=== PATIENT | male | born 1955 | race Caucasian/White ===

== ENCOUNTER → 2017-09-26 | Outpatient (CLI) | payer BC ==
[2017-09-26 08:00] LABS: Appearance,Urine Clear (Clear); Bilirubin,Urine Negative (Negative); Blood,Urine Negative (Negative); Color,Urine Yellow; Glucose,Urine (UA) 4+ (Negative); Ketones,Urine Negative (Negative); Leukocyte Esterase,Urine Negative (Negative); Nitrite,Urine Negative (Negative); PH, Urine 5.5 (5.0-8.0); Protein,Urine Trace (Negative); Specific Gravity,Urine 1.018 (1.001-1.035); Urobilinogen,Urine <2.0 mg/dL (<2.0)
[2017-09-26 08:03] LABS: Basophils # (A) 0.1 k/uL (0-0.2); Basophils % (A) 1 %; Eosinophils # (A) 0.3 k/uL (0-0.7); Eosinophils % (A) 5 %; HCT 43.7 % (39.0-53.0); HGB 14.7 gm/dL (13.0-17.5); Lymphocytes # (A) 2.1 k/uL (1.0-4.8); Lymphocytes % (A) 37 %; MCH 30.2 pg (25.0-35.0); MCHC 33.6 g/dL (31.0-37.0); MCV 89.7 fL (80.0-100.0); Mean Platelet Volume 7.5; Monocytes # (A) 0.5 k/uL (0-1.0); Monocytes % (A) 8 %; Neutrophils # (A) 2.6 k/uL (1.3-7.7); Neutrophils % (A) 46 %; Platelet Count 173 k/uL (150-450); RBC 4.87 m/uL (4.30-5.90); RDW 12.9 % (11.5-15.5); WBC 5.6 k/uL (3.8-10.6)
[2017-09-26 11:55] LABS: ALT 35 U/L (21-72); AST 22 U/L (17-59); Albumin 4.2 g/dL (3.5-5.0); Alkaline Phosphatase 74 U/L (38-126); Anion Gap 11 mmol/L; Blood Urea Nitrogen 16 mg/dL (9-20); Calcium 9.6 mg/dL (8.4-10.2); Carbon Dioxide 26 mmol/L (22-30); Chloride 104 mmol/L (98-107); Cholesterol 126 mg/dL (<200); Glucose 195 mg/dL (74-99); HDL Cholesterol 33 mg/dL (40-60); LDL Cholesterol,Calculated 70 mg/dL (0-99); Potassium 4.7 mmol/L (3.5-5.1); Sodium 141 mmol/L (137-145); Total Bilirubin 0.5 mg/dL (0.2-1.3); Triglycerides 117 mg/dL (<150)
[2017-09-26 12:10] LABS: T4, Free (Free Thyroxine) 0.96 ng/dL (0.78-2.19)
[2017-09-26 12:24] LABS: PSA Annual Screen 1.06 ng/mL (0.00-4.00)
== END | disposition home or self-care (01) ==
LOC: LABWHC1 07:29
PROVIDERS: ATTEND Family Medicine
DX: I10 Essential (primary) hypertension (principal); E11.9 Type 2 diabetes mellitus without complications; Z12.5 Encounter for screening for malignant neoplasm of prostate
CPT/HCPCS: 84439; 80061; 80053; 84443; 85025; 81003; 83036; 36415; G0103

== ENCOUNTER → 2019-12-23 | Outpatient (CLI) | payer MEDICARE ==
[2019-12-23 12:36] LABS: ALT 25 U/L (4-49); AST 25 U/L (17-59); African American GFR (CKD) >90 (>60 ml/min/1.73 sqM); Albumin 4.7 g/dL (3.5-5.0); Alkaline Phosphatase 104 U/L (38-126); Anion Gap 14 mmol/L; Blood Urea Nitrogen 11 mg/dL (9-20); Calcium 9.8 mg/dL (8.4-10.2); Carbon Dioxide 21 mmol/L (22-30); Chloride 105 mmol/L (98-107); Glucose 127 mg/dL (74-99); INR 0.9 (<1.2); Non-African American GFR(CKD) >90 (>60 ml/min/1.73 sqM); Partial Thromboplastin Time 24.6 sec (22.0-30.0); Potassium 4.4 mmol/L (3.5-5.1); Prothrombin Time 9.8 sec (9.0-12.0); Sodium 140 mmol/L (137-145); Total Bilirubin 0.7 mg/dL (0.2-1.3); Total Protein 7.9 g/dL (6.3-8.2)
[2019-12-23 12:46] LABS: HCT 45.7 % (39.0-53.0); HGB 15.6 gm/dL (13.0-17.5); MCH 31.1 pg (25.0-35.0); MCHC 34.2 g/dL (31.0-37.0); MCV 90.9 fL (80.0-100.0); Mean Platelet Volume 7.5; Platelet Count 203 k/uL (150-450); RBC 5.03 m/uL (4.30-5.90); RDW 12.7 % (11.5-15.5); WBC 8.2 k/uL (3.8-10.6)
--- NOTE | 2019-12-23 12:51 | XR ---
EXAMINATION TYPE: XR chest 2V DATE OF EXAM: 12/23/2019 COMPARISON: None INDICATION: Presurgical evaluation TECHNIQUE: Frontal and lateral views of the chest are obtained. FINDINGS: The heart size is normal. The pulmonary vasculature is normal. There is a small nodule within the mid left lung measuring 0.9 cm. Follow-up is recommended. IMPRESSION: 1. Small nodule left midlung. Follow-up is recommended. 2. An acute pulmonary process is not otherwise identified.
[2019-12-23 14:29] LABS: Appearance,Urine Clear (Clear); Bilirubin,Urine Negative (Negative); Blood,Urine Negative (Negative); Color,Urine Colorless; Glucose,Urine (UA) Negative (Negative); Ketones,Urine Negative (Negative); Leukocyte Esterase,Urine Negative (Negative); Nitrite,Urine Negative (Negative); Protein,Urine Negative (Negative); Specific Gravity,Urine 1.003 (1.001-1.035); Urobilinogen,Urine <2.0 mg/dL (<2.0)
== END | disposition home or self-care (01) ==
LOC: LABPAT 11:43
PROVIDERS: ATTEND Orthopaedic Surgery Orthopaedic Surgery of the Spine
DX: Z01.818 Encounter for other preprocedural examination (principal); R91.8 Other nonspecific abnormal finding of lung field; U07.1 COVID-19
CPT/HCPCS: 71046; 80053; 81003; 85027; 85610; 85730; 87635; 93005

== ENCOUNTER 2019-12-28 10:02 | Observation (INO) | payer BC, MEDICARE ==
[~2019-12-28 10:02] MED LIST: HYDROmorphone 0.5 MG/0.5 ML SYRINGE IVP PRN; LIDOCAINE 1% (10MG/ML) FOR IV START INTRADERMA PRN; ONDANSETRON 4 MG/2 ML VIAL IVP ONE; SODIUM CHLORIDE 0.9% IRRIGATIO 1,000 ML IRRIGATION ONE; fentaNYL (PF) 50 MCG/ML 2 ML AMP IV PRN
[2019-12-28 10:30] LABS: Glucose,Whole Blood 185 mg/dL (75-99)
[2019-12-28] MEDS ORDERED: LACTATED RINGERS 1,000 ML IV ONE ×2 (10:35→14:05)
[2019-12-28] MEDS ORDERED: MIDAZOLAM 2 MG/2 ML VIAL IVP ONE (10:43)
[2019-12-28] MEDS ORDERED: CALCIUM CHLORIDE 100 MG/ML 10 ML SYRINGE ONE (11:26)
[2019-12-28] MEDS ORDERED: ROCURONIUM BROMIDE 10 MG/ML 5 ML VIAL IV ONE (11:26)
[2019-12-28] MEDS ORDERED: GLYCOPYRROLATE 0.2 MG/ML 2 ML VIAL ONE (11:26)
[2019-12-28] MEDS ORDERED: HYDROmorphone (PF) 1 MG/ML ONE (11:26)
[2019-12-28] MEDS ORDERED: fentaNYL (PF) 50 MCG/ML 2 ML AMP ONE (11:26)
[2019-12-28] MEDS ORDERED: ONDANSETRON 4 MG/2 ML VIAL ONE (11:26)
[2019-12-28] MEDS ORDERED: PROPOFOL 10 MG/ML 20 ML VIAL IV ONE (11:26)
[2019-12-28] MEDS ORDERED: LIDOCAINE 1% INJ 10MG/ML (20 ML MDV) ONE (11:26)
[2019-12-28] MEDS ORDERED: DEXAMETHASONE SOD PHOS (MDV) 100 MG/10 ML VIAL ONE (11:26)
[2019-12-28] MEDS ORDERED: SUCCINYLCHOLINE CHLORIDE 100 MG/5 ML SYR IV ONE (11:26)
[2019-12-28] MEDS ORDERED: ePHEDrine SULFATE/0.9% NACL/PF 50 MG/5 ML SYRINGE IV ONE (11:26)
[2019-12-28] MEDS ORDERED: MIDAZOLAM 2 MG/2 ML VIAL ONE (11:26)
[2019-12-28] MEDS ORDERED: NEOSTIGMINE 1 MG/ML 10 ML VIAL ONE (11:26)
[2019-12-28] MEDS ORDERED: LIDOCAINE 2%-EPI 1:100,000 20 ML VIAL SQ ONE (12:03)
[2019-12-28] MEDS ORDERED: BUPIVACAINE (PF) 0.5% 30 ML VIAL SQ ONE (12:03)
[2019-12-28] MEDS ORDERED: THROMBIN (BOVINE) 5,000 UNIT VIAL TOPICAL ONE (12:12)
[2019-12-28] MEDS ORDERED: GELATIN SPONGE,ABSORB (LARGE) 1 EACH SPONGE TOPICAL ONE (12:12)
[2019-12-28] MEDS ORDERED: SODIUM CHLORIDE 0.9% 1,000 ML IV ONE (12:28)
--- NOTE | 2019-12-28 13:43 | FL ---
EXAMINATION TYPE: FL guidance operating room DATE OF EXAM: 12/28/2019 HISTORY: Fluoroscopy time 7 seconds of fluoroscopy provided. IMPRESSION: 1. Fluoroscopy time.
--- NOTE | 2019-12-28 13:43 | XR ---
EXAMINATION TYPE: XR cervical spine 1V DATE OF EXAM: 12/28/2019 COMPARISON: NONE HISTORY: Needle placement TECHNIQUE: Four views are submitted. FINDINGS: The odontoid is intact. There are no compression deformities. The prevertebral soft tissue structur es are within normal limits. Metallic density seen overlying the C6-C7 disc space anteriorly. Sugges tion of either ET or NG tube. IMPRESSION: 1. Intraoperative localization.
[2019-12-28] MEDS ORDERED: MORPHINE SULFATE 4 MG/ML SYRINGE IM PRN (13:48)
[2019-12-28] MEDS ORDERED: ONDANSETRON 4 MG/2 ML VIAL IVP PRN (13:48)
[2019-12-28] MEDS ORDERED: BISACODYL 10 MG SUPP RECTAL PRN (13:48)
[2019-12-28] MEDS ORDERED: MORPHINE SULFATE 2 MG/ML SYRINGE IM PRN (13:48)
[2019-12-28] MEDS ORDERED: HYDROcodone/APAP 5-325MG 1 EACH TAB PO PRN (13:48)
[2019-12-28] MEDS ORDERED: DIAZEPAM 5 MG TAB PO PRN (13:50)
[2019-12-28] MEDS ORDERED: BENZOCAINE/MENTHOL LOZENG 1 EACH LOZENGE MUCOUS MEM PRN (13:50)
[2019-12-28] MEDS ORDERED: HYDROmorphone 1 MG/ML 1 ML SYRINGE IVP PRN (13:50)
[2019-12-28] MEDS ORDERED: HYDROmorphone 0.5 MG/0.5 ML SYRINGE IVP PRN (13:50)
--- NOTE | 2019-12-28 13:56 | P.OP ---
Date of Procedure: 12/28/19 Preoperative Diagnosis: Cervical myelopathy, upper and lower extremity weakness, severe cervical stenosis C6 7, cervical stenosis C4 5 C5 6, degenerative disc disease C4 5 C5 6 C6 7, upper extremity radiculopathy, neck pain, upper extremity pain, gait dysfunction due to myelopathy Postoperative Diagnosis: Same Anesthesia: GETA Pathology: none sent Condition: stable Disposition: PACU Description of Procedure: BRIEF OPERATIVE NOTE Preoperative Diagnosis:Cervical myelopathy, upper and lower extremity weakness, severe cervical stenosis C6 7, cervical stenosis C4 5 C5 6, degenerative disc disease C4 5 C5 6 C6 7, upper extremity radiculopathy, neck pain, upper extremity pain, gait dysfunction due to myelopathy Postoperative Diagnosis:Cervical myelopathy, upper and lower extremity weakness, severe cervical stenosis C6 7, cervical stenosis C4 5 C5 6, degenerative disc disease C4 5 C5 6 C6 7, upper extremity radiculopathy, neck pain, upper extremity pain, gait dysfunction due to myelopathy Procedure: Anterior cervical decompression with discectomy and fusion C4 5 C5 6 C6 7 Placement of interbody graft C4 5 C5 6 C6 7 Application of anterior cervical plate C4 5 6 and 7 Surgeon: Dr. Murillo Roll Table Operator: Aj Grant is present throughout the entire the case persistence during positioning, dissection, exposure, visualization, and all crucial elements of the case as well as closure. Anesthesia: General anesthesia per Dr. Wooten Estimated blood loss: Approximately 75 mL Complications: None apparent Components implanted: K2M [place] anterior cervical plate system measuring 60 mm with 14 mm screws, Vikos interbody allograft bone graft 3 with 1 mL of DBX bone putty Disposition: To recovery room in good stable condition. OPERATIVE INDICATIONS The patient has had long-standing issues in their neck and upper extremities. The patient was having worsening of his symptoms with weakness in his upper extremities and gait dysfunction as well. He was having symptoms of cervical myelopathy and had evaluation which showed severe cervical stenosis at C6 7 with significant cervical stenosis C4 5 and C5 6. He is also found have a small mass at his brain which underwent further evaluation with neurology and neurosurgery. It was felt that his primary symptoms are stemming from his cervical spine. The patient has been through conservative treatment. He was having worsening despite conservative treatment. He is having evidence of weakness at his upper extremities as well as gait dysfunction and upper motor neuron signs which were attributed to the severe cervical stenosis with evidence of cervical myelopathy from his cervical spine. We felt that his symptoms were time sensitive and that he was at risk for further neurologic loss. We discussed various treatment options including surgery, and the patient wishes to proceed with surgery We discussed the risk, patient's alternatives and benefits of surgery including but not limited to, risk of bleeding risk of infection, risk of need for further surgery, risk of decreased, loss of motion, muscle function, malunion nonunion, hardware failure, nerve damage, paralysis, heart attack, and . We will see discussed with him the fact that there is a current pandemic and there is no way to fully guarantee complete isolation from exposure. He understood this issue had decided to proceed. OPERATIVE SUMMARY After discussing all the risks, patient alternatives and benefits at length, the patient elected to proceed with surgical intervention, signed informed consent, and presented for their procedure. The patient was seen and examined in the preoperative holding area and the surgical site was marked. The patient was given antibiotics and brought to the operating room. The patient was positioned on the operating room table in a supine position being careful to pad any bony prominences and pressure points. The patient was sedated and intubated by anesthesia in standard fashion. Once the airway and C- spine were stabilized the patient's arms were padded and tucked at her side, with her shoulders gently taped. The head was placed in a donut pad with the neck in good neutral alignment and position. We were careful to maintain the patient's cervical spine and good neutral alignment and position throughout. The patient was prepped and draped in a normal standard fashion. An appropriate timeout and keystone protocol performed. We were able to proceed with the surgery. The local wound area was infiltrated with local anesthetic. An incision was made transversely approximately 2-1/2 cm over the appropriate levels at C5 6. Dissection was taken down subcutaneously to the level of the platysma which was split in line with its fibers. Dissection was taken with a carotid approach, with the trachea and esophagus medial and the carotid sheath laterally. We dissected down to the anterior surface of the vertebral bodies. Intraoperative x-ray was taken which showed a marker at the appropriate level at C6 7. With the appropriate level positively confirmed, we were able to proceed with discectomy at the appropriate levels, starting at C6 7 moving to C5 6 and then to C 45 . All of the operative levels were exposed appropriately. The patient had all their twitches back, and there was no evidence of recurrent lar yngeal issue. The wound was copiously irrigated and suctioned dry as had been done periodically throughout the case. At the appropriate level/levels, first starting at C6 7 which was most severe level removing cephalad to C5 6 and then C4 5,I established an annulotomy with an 11 blade scalpel. A discectomy was performed with a combination of pituitary rongeurs, curettes, a high-speed bur, and Kerrison rongeurs. The posterior longitudinal ligament was taken down as were any posterior osteophytes. note was made of severe evidence of central and bilateral foraminal stenosis most severe at C6 7 but also significant at C4 5 and at C5 6. I was able to perform a decompression and discectomy with foraminotomy. This gave good central and bilateral foraminal decompression. There is no evidence of any dural tear or leak. The endplates were prepared with a high-speed bur. With the endplates in good parallel position, I was able to size for the appropriate size interbody graft. The wound was irrigated and suctioned dry the graft was prepared and malleted into position. It had good alignment and position with the anterior surface flush with the anterior surface of the vertebral bodies. This was done similarly the appropriate levels From C4 to C7. With the grafts intact, I was able to measure and contour and appropriate sized plate. The plate was positioned at the midline over the appropriate levels From C4 to C7. Screw holes were established with a hand drill and drill guide. Screws were placed in good alignment and position with excellent bony purchase. They were seated under the locking device. The construct was checked and found to be stable. Intraoperative x-ray was taken which showed good alignment and position of the implants at the appropriate levels. There was no evidence of any dural tear or leak. Good hemostasis was maintained. The wound was copiously irrigated and suctioned dry as had been done periodically throughout the case. The platysma was closed with absorbable suture. The subcutaneous tissue was closed. The subcuticular tissue was closed with absorbable suture. The wound was cleaned and dried and dressed appropriately. A soft cervical collar was placed appropriately. The patient was woken up by anesthesia, extubated, transferred back gently to their hospital bed and brought to the recovery room in good stable condition. The patient will be admitted to the hospital for appropriate postoperative care, medical management and monitoring. We will continue to follow them closely about the postoperative course.
[2019-12-28 14:46] LABS: Glucose,Whole Blood 224 mg/dL (75-99)
[2019-12-28 18:11] LABS: Glucose,Whole Blood 248 mg/dL (75-99)
[2019-12-28] MEDS: LACTATED RINGERS 1,000 ML IV SCH (18:58)
[2019-12-28] MEDS: glipiZIDE 10 MG TAB PO SCH (19:08)
[2019-12-28] MEDS: LINAGLIPTIN 5 MG TABLET PO SCH (19:08)
[2019-12-28] MEDS: SODIUM CHLORIDE 0.9% 1,000 ML IV SCH (19:08)
[2019-12-28] MEDS: metFORMIN 500 MG TAB PO SCH (20:26)
[2019-12-28] MEDS ORDERED: EZETIMIBE 10 MG TAB PO SCH (21:00)
[2019-12-28] MEDS ORDERED: ATORVASTATIN 10 MG TAB PO SCH (21:00)
[2019-12-28 21:10] LABS: Glucose,Whole Blood 266 mg/dL (75-99)
--- NOTE | 2019-12-28 23:52 | P.CONS ---
History of Present Illness - Reason for Consult Consult date: 12/28/19 Medical management Requesting physician: Abel Murillo - Chief Complaint Severe cervical spine stenosis, cervical myelopathy, weakness of the upper, - History of Present Illness 64-year-old male one of Dr. 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 Patient symptom has become a lot worse lately with significant weakness of the upper extremity with severe abnormal balance and gait. Patient had try conservative management also had second evaluation by a neurosurgeon down at [facility] the conclusion was to go for ROM decompression and dissected me and fusion of the C4 5 [id number]. Also to have placement of interbody graft and cervical plate in the C4 5 6 and 7. Surgery was done today successfully with Dr. Murillo, patient was hemodynamically stable after surgery was admitted to medical pain is well-controlled patient is very stable hemodynamically. Review of Systems CONSTITUTIONAL: Well-developed no acute respiratory distress. Significant neck pain and currently cervical spine collar. EYES: No icterus sclerae, no conjunctivitis. EARS, NOSE, MOUTH, THROAT, and FACE: No sore throat, lymphadenopathy, carotid bruits or deformity. RESPIRATORY: No SOB cough or wheezes. CARDIOVASCULAR: No CP, Palpitation, PND, Orthopnea, or angina. GASTROINTESTINAL: No Abd pain, Nausea or vomiting, no Diarrhea or constipation, No GI Bleed, no distention or masses. GENITOURINARY: Negative for Hematuria or UTI, no kidney stones. INTEGUMENT/BREAST: Negative for any muscular injury with mild osteoarthritis.. HEMATOLOGIC/LYMPHATIC: Negative for bleed or purpura. MUSCULOSKELTAL: Negative for Myalgia or arthralgia. NEURLOGICAL: Weakness and numbness in the upper extremity with slight weakness of the lower extremity with severe abnormal balance and gait. BEHAVIORAL/PSYCH: Negative. ENDOCRINE: Negative. Past Medical History Past Medical History: Diabetes Mellitus, Hyperlipidemia, Hypertension, Musculoskeletal Disorder, Osteoarthritis (OA), Prostate Disorder Additional Past Medical History / Comment(s): hx. 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 Past Anesthesia/Blood Transfusion Reactions: No Reported Reaction Past Psychological History: Anxiety Additional Psychological History / Comment(s): related to this surg. Smoking Status: Former smoker Past Alcohol Use History: None Reported Additional Past Alcohol Use History / Comment(s): quit smoking @38, smoked >20 yrs. 1ppd Past Drug Use History: None Reported - Past Family History Mother Family Medical History: No Reported History Medications and Allergies Home Medications Medication Instructions Recorded Confirmed Type Ezetimibe/Simvastatin [Vytorin 1 tab PO HS 12/27/19 12/27/19 History 10-20 mg] Tamsulosin [Flomax] 0.4 mg PO DAILY 12/27/19 12/27/19 History amLODIPine BESYLATE/BENAZEPRIL 1 each PO QAM 12/27/19 12/27/19 History [amLODIPine BESYLATE/BENAZEPRIL 5-20 mg] glipiZIDE [Glucotrol] 10 mg PO AC-BID 12/27/19 12/27/19 History sitaGLIPtin PHOS/metFORMIN HCL 1 each PO BID 12/27/19 12/27/19 History [Janumet 50-1,000 mg Tablet] HYDROcodone/APAP 5-325MG [[place] 5] 1 each PO Q6HR PRN #28 tab 12/28/19 Rx Allergies Allergy/AdvReac Type Severity Reaction Status Date / Time No Known Allergies Allergy Verified 12/27/19 08:06 Physical Exam Vitals: Vital Signs Temp Pulse Pulse Pulse Resp BP BP 12/28/19 20:05 98.9 F 97 16 143/75 12/28/19 17:15 104 H 20 147/67 12/28/19 16:50 112 H 22 151/70 12/28/19 16:35 104 H 22 131/55 12/28/19 16:20 80 26 H 131/62 12/28/19 16:03 95 16 123/57 12/28/19 15:50 99 22 129/59 12/28/19 15:35 104 H 20 144/66 12/28/19 15:20 102 H 22 151/69 12/28/19 15:05 99 16 164/77 12/28/19 14:50 110 H 16 158/74 12/28/19 14:35 62 16 99/54 12/28/19 14:20 97 F L 61 12 86/48 12/28/19 10:25 97.8 F 109 H 18 146/74 Pulse Ox 12/28/19 20:05 97 12/28/19 17:15 94 L 12/28/19 16:50 92 L 12/28/19 16:35 97 12/28/19 16:20 96 12/28/19 16:03 96 12/28/19 15:50 96 12/28/19 15:35 97 12/28/19 15:20 96 12/28/19 15:05 95 12/28/19 14:50 95 12/28/19 14:35 96 12/28/19 14:20 96 12/28/19 10:25 98 Intake and Output 12/28/19 12/28/19 12/28/19 06:59 14:59 22:59 Intake Total 2250 550 Output Total 250 200 Balance 2000 350 Intake: IV 2250 550 Output: Urine 175 200 Estimated Blood Loss 75 Other: Weight 111 kg 111 kg General Appearance: Alert, cooperative, no distress, appears stated age. Neck HEENT: Scar tissue of the C-spine area with anterior incision as well and patient has collar. Lungs: Clear to auscultation without crackles or wheezes no rhonchi, no deformity. Chest Wall: Chest wall normal expansion with deep inspiration no tenderness and no deformity was found on exam, no costochondral pain or discomfort. Heart: Regular rate and rhythm, S1, S2 normal, no murmur, rub or gallop. Back: Symmetric, no curvature, ROM normal, no CVA tenderness. Abdomen: Soft, non-tender, bowel sounds active all four quadrants, no masses, no organomegaly. Extremities: Slight atrophy of the upper extremity with slight arthritis of the knees bilaterally. Pulses: 2+ and symmetric. Skin: Skin color, texture, tugor normal, no rashes or lesions. Neurologic: Alert oriented x3 cranial nerves II through XII intact, positive slight weakness of the upper extremity and the lower extremity as well more generalized. Results Labs: Abnormal Lab Results - Last 24 Hours (Table) 12/28/19 12/28/19 12/28/19 Range/Units 10:28 14:43 17:59 POC Glucose (mg/dL) 185 H 224 H 248 H (75-99) mg/dL 12/28/19 Range/Units 21:06 POC Glucose (mg/dL) 266 H (75-99) mg/dL Assessment and Plan Assessment: 1 post cervical spine decompression with dissected me and effusion along with interbody graft and anterior cervical plate and C4 5 6 and 7: Patient is doing well post surgery resume home meds, watch patient pain and pain control watch patient hemodynamic status. 2 type 2 diabetes: Has been on Janumet mg twice a day along with glipizide 10 mg twice a day continue oral medication continue patient on Accu- Chek with sliding scales coverage. 3 hypertension: Remain on amlodipine Benzapril 5/20 mg a day. 4 BPH: Continue to watch for any urinary retention and any requirement for catheter remain on Flomax 0.4 mg a day. 5 hyperlipidemia: Remain on Vytorin 10/20 mg a day with no side effects so far. 6 chronic pain management: Has been on hydrocodone orally patient was to continue on oral hydrocodone and if needed smaller dose of Dilaudid. 7 GI prophylaxis: Patient will be on Pepcid 20 mg daily. 8 DVT prophylaxis: Early mobilization and subcu heparin will be use. CODE STATUS: Full code. Dr. Murillo thank you much for the consult if I can be any further help to please let me know
[2019-12-29 07:06] LABS: Glucose,Whole Blood 172 mg/dL (75-99)
[2019-12-29] MEDS: SODIUM CHLORIDE 0.9% 1,000 ML IV SCH ×2 (07:25→08:55)
[2019-12-29] MEDS: glipiZIDE 10 MG TAB PO SCH (08:44)
[2019-12-29] MEDS: LINAGLIPTIN 5 MG TABLET PO SCH (08:44)
[2019-12-29] MEDS: metFORMIN 500 MG TAB PO SCH (08:45)
[2019-12-29] MEDS: LACTATED RINGERS 1,000 ML IV SCH (08:46)
[2019-12-29] MEDS ORDERED: LISINOPRIL 20 MG TAB PO SCH (09:00)
[2019-12-29] MEDS ORDERED: SENNOSIDES-DOCUSATE SODIUM 1 EACH TAB PO SCH (09:00)
[2019-12-29] MEDS ORDERED: FAMOTIDINE 20 MG TAB PO SCH (09:00)
[2019-12-29] MEDS ORDERED: HEPARIN SODIUM,PORCINE 5,000 UNIT/ML 1 ML VIAL SQ SCH (09:00)
[2019-12-29] MEDS ORDERED: TAMSULOSIN 0.4 MG CAP.ER.24H PO SCH (09:00)
[2019-12-29] MEDS ORDERED: amLODIPine 5 MG TAB PO SCH (09:00)
--- NOTE | 2019-12-29 09:23 | P.DS ---
Providers Date of admission: 12/28/2019 Attending physician: Abel Murillo Consults: 12/28/19 17:11 Consult Physician Urgent Consulting Provider: Costa Lewis Reason/Comments: medical management Do you want consulting provider notified?: Yes Primary care physician: Lopez Donal [facility] Hospital Course: The patient presented on the day of admission as per their operative note.he has cervical myelopathy and this was due to severe stenosis particular at C6 7 with stenosis C5 6 and C4 5. He was having neurologic changes and changes in his gait as well. He underwent surgical intervention for his cervical spine with decompression and fusion as per his operative note yesterday. He says today his arms are feeling pretty good distal seem to tense up on him. He feels his strength may have some improvement but certainly not having worsening. He was able to walk around with standby assist and felt that he was walking well. When he woke up from anesthesia yesterday he was slow to wake up and had been reintubated. He recovered well since patient was able to be extubated and has had significant improved recovery since then. He did have some urinary retention overnight and had to get straight cathed. He was seen by medicine and was started on Flomax. He has not yet had to void this morning. Physical Exam The incision site is clean dry and intact. There is no erythema no drainage. There is no purulence no evidence of infection.his neck is soft and supple. There is no significant drainage. Abdomen soft and nontender. Chest has good excursion with deep inspiration and expiration. The patient has active and passive range of motion intact at the upper and lower extremities. he has good motion in his hands fingers elbows and shoulders. There is no acute change in neurologic status. Hospital Course cervical myelopathy with severe cervical stenosis C4 5 C5 6 C6 7 status post anterior cervical decompression with discectomy and fusion C4 5 C5 6 C6 7 Urinary retention The patient has been making Steady progress postoperatively. They have completed the prophylactic antibiotics without any signs or symptoms of infection. The patient has been able to advance their diet, and is tolerating diet adequately. The pain was initially controlled with IV medications and is now controlled appropriately with oral medications. The patient has been able to increase their mobilization. he is still having some issues with urinary retention and we'll see how he does get the rest the morning. he had it straight calf last night and has been started on Flomax by medicine which I think is appropriate.If he is able to void on his own but I think it'll be fine for him to be discharged home today. The patient has progressed appropriately. I think they are in good stable condition for discharge today if he is able to void on his own. They will be sent home with appropriate prescriptions. I answered their questions to the best of my ability in a language that they can understand and they are agreeable with the plan. They will follow up as directedin approximately 2 weeks or sooner if he is having any problems. Patient Condition at Discharge: Fair Plan - Discharge Summary Discharge Rx Participant: Yes New Discharge Prescriptions: New HYDROcodone/APAP 5-325MG [[place] 5] 1 each PO Q6HR PRN #28 tab PRN Reason: Pain No Action Ezetimibe/Simvastatin [Vytorin 10-20 mg] 1 tab PO HS sitaGLIPtin PHOS/metFORMIN HCL [Janumet 50-1,000 mg Tablet] 1 each PO BID glipiZIDE [Glucotrol] 10 mg PO AC-BID Tamsulosin [Flomax] 0.4 mg PO DAILY amLODIPine BESYLATE/BENAZEPRIL [amLODIPine BESYLATE/BENAZEPRIL 5-20 mg] 1 each PO QAM Discharge Medication List Ezetimibe/Simvastatin [Vytorin 10-20 mg] 1 tab PO HS 12/27/19 [History] Tamsulosin [Flomax] 0.4 mg PO DAILY 12/27/19 [History] amLODIPine BESYLATE/BENAZEPRIL [amLODIPine BESYLATE/BENAZEPRIL 5-20 mg] 1 each PO QAM 12/27/19 [History] glipiZIDE [Glucotrol] 10 mg PO AC-BID 12/27/19 [History] sitaGLIPtin PHOS/metFORMIN HCL [Janumet 50-1,000 mg Tablet] 1 each PO BID [History] HYDROcodone/APAP 5-325MG [[place] 5] 1 each PO Q6HR PRN #28 tab 12/28/19 [Rx] Follow up Appointment(s)/Referral(s): Abel Murillo DO [Doctor of Osteopathic Medicine] - 2 Weeks Lopez Mansfield DO [Primary Care Provider] - 1 Week Activity/Diet/Wound Care/Special Instructions: Keep site clean. May shower with waterproof Tegaderm intact. Do not soak in a tub. After 72 hours postoperatively, patient May remove dressing and then may shower with area uncovered. Leave Steri-Strips intact and allow them to fray off on their own. May ambulate as tolerated. Avoid heavy or rigorous activity. No repetitive bending twisting or lifting. No overhead work. Discharge Disposition: HOME SELF-CARE
[2019-12-29 11:09] LABS: Glucose,Whole Blood 113 mg/dL (75-99)
[2019-12-29 11:20] VITALS: BP 182/84; PULSE 91; TEMP 97.4
[2019-12-29] MEDS ORDERED: TAMSULOSIN 0.4 MG CAP.ER.24H PO STA (11:58)
--- NOTE | 2019-12-29 12:04 | XR ---
Limited cervical spine HISTORY: Anterior cervical fusion and discectomy 2 intraoperative C-arm images document the procedure.
[2019-12-29 12:20] VITALS: RESP 22
[2019-12-29 14:12] VITALS: BMI 36.1
--- NOTE | 2019-12-29 14:52 | P.PN ---
Subjective Progress Note Date: 12/29/19 64-year-old male one of Dr. 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 Michelle ent symptom has become a lot worse lately with significant weakness of the upper extremity with severe abnormal balance and gait. Patient had try conservative management also had second evaluation by a neurosurgeon down at [facility] the conclusion was to go for ROM decompression and dissected me and fusion of the C4 5 [id number]. Also to have placement of interbody graft and cervical plate in the C4 5 6 and 7. Surgery was done today successfully with Dr. Murillo, patient was hemodynamically stable after surgery was admitted to medical pain is well- controlled patient is very stable hemodynamically. 12/28: Patient states he still has some weakness in his upper arms and voice is still hoarse. He states he used a cane and related to the bathroom today without difficulty. He has had difficulty with urinary retention and was started on Flomax 0.4 mg daily. Patient is able to void but not sufficient quantity. He did require to straight caths this morning and Flomax one dose of 0.8 given today. Patient to be monitored this afternoon and if he is able to void, patient can be discharged home. Try to avoid London catheter placement. Objective - Vital Signs Vital signs: Vital Signs Temp 98.9 F 12/29/19 04:30 Pulse 73 12/29/19 04:30 Resp 18 12/29/19 04:30 BP 130/68 12/29/19 04:30 Pulse Ox 96 12/29/19 04:30 Intake & Output 12/28/19 12/29/19 12/29/19 18:59 06:59 18:59 Intake Total 2800 825 Output Total 450 1200 Balance 2350 -375 Weight 111 kg Intake: IV 2800 Intake, IV Titration 825 Amount Sodium Chloride 0.9% 1, 825 000 ml @ 75 mls/hr IV . [id number] [facility] Rx#:[id number] Output: Urine 375 1200 Straight 1100 Estimated Blood Loss 75 - Exam Review of Systems CONSTITUTIONAL: Well-developed no acute respiratory distress. Significant neck pain and currently cervical spine collar. EYES: No icterus sclerae, no conjunctivitis. EARS, NOSE, MOUTH, THROAT, and FACE: No sore throat, lymphadenopathy, carotid bruits or deformity. RESPIRATORY: No SOB cough or wheezes. CARDIOVASCULAR: No CP, Palpitation, PND, Orthopnea, or angina. GASTROINTESTINAL: No Abd pain, Nausea or vomiting, no Diarrhea or constipation, No GI Bleed, no distention or masses. GENITOURINARY: Negative for Hematuria or UTI, no kidney stones. Reports urinary retention. INTEGUMENT/BREAST: Negative for any muscular injury with mild osteoarthritis.. HEMATOLOGIC/LYMPHATIC: Negative for bleed or purpura. MUSCULOSKELTAL: Negative for Myalgia or arthralgia. NEURLOGICAL: Weakness and numbness in the upper extremity with slight weakness of the lower extremity with severe abnormal balance and gait. BEHAVIORAL/PSYCH: Negative. ENDOCRINE: Negative. Physical Examination General Appearance: Alert, cooperative, no distress, appears stated age. Neck HEENT: Scar tissue of the C-spine area with anterior incision as well and patient has soft c-collar in place. Lungs: Clear to auscultation without crackles or wheezes no rhonchi, no deformity. Chest Wall: Chest wall normal expansion with deep inspiration no tenderness and no deformity was found on exam, no costochondral pain or discomfort. Heart: Regular rate and rhythm, S1, S2 normal, no murmur, rub or gallop. Back: Symmetric, no curvature, ROM normal, no CVA tenderness. Abdomen: Soft, non-tender, bowel sounds active all four quadrants, no masses, no organomegaly. Extremities: Slight atrophy of the upper extremity with slight arthritis of the knees bilaterally. Pulses: 2+ and symmetric. Skin: Skin color, texture, tugor normal, no rashes or lesions. Neurologic: Alert oriented x3 cranial nerves II through XII intact, positive slight weakness of the upper extremity and the lower extremity as well more generalized. - Labs Labs: Abnormal Lab Results - Last 24 Hours (Table) 12/28/19 12/28/19 12/28/19 Range/Units 10:28 14:43 17:59 POC Glucose (mg/dL) 185 H 224 H 248 H (75-99) mg/dL 12/28/19 12/29/19 Range/Units 21:06 07:00 POC Glucose (mg/dL) 266 H 172 H (75-99) mg/dL Assessment and Plan Plan: 1 post cervical spine decompression with dissected me and effusion along with interbody graft and anterior cervical plate and C4 5 6 and 7: Patient is doing well post surgery resume home meds, watch patient pain and pain control watch patient hemodynamic status. 2 type 2 diabetes: Has been on Janumet mg twice a day along with glipizide 10 mg twice a day continue oral medication continue patient on Accu- Chek with sliding scales coverage. 3 hypertension: Remain on amlodipine Benzapril 5/20 mg a day. 4 BPH: Continue to watch for any urinary retention and any requirement for catheter remain on Flomax 0.4 mg a day. Continue to monitor for urinary r etention. 5 hyperlipidemia: Remain on Vytorin 10/20 mg a day with no side effects so far. 6 chronic pain management: Has been on hydrocodone orally patient was to continue on oral hydrocodone and if needed smaller dose of Dilaudid. 7 GI prophylaxis: Patient will be on Pepcid 20 mg daily. 8 DVT prophylaxis: Early mobilization and subcu heparin will be use. CODE STATUS: Full code. Dr. Murillo thank you much for the consult if I can be any further help to please let me know Discharge plan: Home today Impression and plan of care have been directed as dictated by the signing physician. Geni Miller nurse practitioner acting as scribe for signing physician.
[2019-12-30] MEDS ORDERED: TAMSULOSIN 0.4 MG CAP.ER.24H PO SCH (09:00)
== END 2019-12-29 17:34 | disposition home or self-care (01) ==
LOC: OR 10:02 → 5NMEDONC 13:43 → OR 12-29 15:56 → 5NMEDONC 12-29 15:56
PROVIDERS: ADMIT Orthopaedic Surgery Orthopaedic Surgery of the Spine; ATTEND Orthopaedic Surgery Orthopaedic Surgery of the Spine
DX: M48.02 Spinal stenosis, cervical region (principal); M50.021 Cervical disc disorder at C4-C5 level with myelopathy; M50.121 Cervical disc disorder at C4-C5 level with radiculopathy; M47.12 Other spondylosis with myelopathy, cervical region; M47.22 Other spondylosis with radiculopathy, cervical region; E11.9 Type 2 diabetes mellitus without complications; I10 Essential (primary) hypertension; E78.5 Hyperlipidemia, unspecified; R26.9 Unspecified abnormalities of gait and mobility; G89.29 Other chronic pain; M54.5 Low back pain; F41.9 Anxiety disorder, unspecified; N40.1 Benign prostatic hyperplasia with lower urinary tract symptoms; R33.8 Other retention of urine; M75.42 Impingement syndrome of left shoulder; M75.122 Complete rotator cuff tear or rupture of left shoulder, not specified as traumatic; G56.02 Carpal tunnel syndrome, left upper limb; G56.21 Lesion of ulnar nerve, right upper limb; G93.9 Disorder of brain, unspecified; M19.90 Unspecified osteoarthritis, unspecified site; Z79.84 Long term (current) use of oral hypoglycemic drugs; Z79.899 Other long term (current) drug therapy; Z87.891 Personal history of nicotine dependence; Z87.442 Personal history of urinary calculi; Z83.3 Family history of diabetes mellitus; Z82.49 Family history of ischemic heart disease and other diseases of the circulatory system
CPT/HCPCS: 22551; 22552 ×2; 94760; 72020; 72040; G0378; C1713 ×2; C1762 ×2; J2250; J1644; J2710; J0690 ×2; J2405; J2001; J3010; J1170; J1100; J0330; J2704; 86850; 86900; 86901

== ENCOUNTER → 2022-01-14 | Outpatient (CLI) | payer MEDICARE ==
--- NOTE | 2022-01-14 17:03 | XR ---
KUB HISTORY: Pain with urination Frontal KUB and 2 images correlated to prior exam dated 05/27/2016 Exam is somewhat limited technically. Overlying bowel gas may obscure detail. Calcifications in the l eft upper quadrant may be related to splenic granuloma. There is a mild spinal curvature, degenerativ e disc change. Indeterminate calcifications are present within the pelvis. No evident bowel obstructi on or pneumoperitoneum. Air-fluid levels present without bowel distention. IMPRESSION: Indeterminate calcifications are present within the abdomen. There may be an underlying i leus or enteritis.
== END | disposition home or self-care (01) ==
LOC: RADXRMAIN 15:02
PROVIDERS: ATTEND Urology
DX: R30.9 Painful micturition, unspecified (principal)
CPT/HCPCS: 74018

== ENCOUNTER 2022-01-16 09:54 | Inpatient (IN) | payer MEDICARE ==
[2022-01-16 12:02] LABS: Basophils % (A) 0 %; Eosinophils % (A) 0 %; HCT 42.4 % (39.0-53.0); HGB 14.3 gm/dL (13.0-17.5); Lymphocytes # (A) 0.8 k/uL (1.0-4.8); Lymphocytes % (A) 6 %; MCHC 33.8 g/dL (31.0-37.0); MCV 91.9 fL (80.0-100.0); Mean Platelet Volume 9.1; Monocytes # (A) 0.8 k/uL (0-1.0); Monocytes % (A) 6 %; Neutrophils # (A) 11.7 k/uL (1.3-7.7); Neutrophils % (A) 86 %; Platelet Count 174 k/uL (150-450); RBC 4.62 m/uL (4.30-5.90); RDW 13.3 % (11.5-15.5); WBC 13.5 k/uL (3.8-10.6)
--- NOTE | 2022-01-16 12:07 | ED ---
General Adult HPI - General Chief complaint: Urogenital Stated complaint: Kidney Stone Time Seen by Provider: 01/16/22 11:40 Source: patient, family, RN notes reviewed, old records reviewed Mode of arrival: ambulatory Limitations: no limitations - History of Present Illness Initial comments: Well-appearing 66-year-old male presents ambulatory with complaints of urinary retention since last night. Patient states that he did see Dr. Byrnes yesterday and had a scope done for possible kidney stone as he has had stones in the past. He stated that there is no evidence of stone at that time and was told to return if any increased pain as he may need a CT. Patient states he has had back pain for one week which is why he seen Dr. Byrnes. Denies any fevers, no nausea, vomiting, diarrhea. -: days(s) (1) Location: pelvis Severity scale (1-10): 8 Quality: aching, constant, other (pressure) Improves with: none Associated Symptoms: denies other symptoms - Related Data Home Medications Medication Instructions Recorded Confirmed Tamsulosin [Flomax] 0.4 mg PO DAILY 12/27/19 12/27/19 amLODIPine BESYLATE/BENAZEPRIL 1 each PO QAM 12/27/19 12/27/19 [amLODIPine BESYLATE/BENAZEPRIL 5-20 mg] glipiZIDE [Glucotrol] 10 mg PO AC-BID 12/27/19 12/27/19 Aspirin EC [Ecotrin] 325 mg PO DAILY PRN 01/16/22 01/16/22 Allergies Allergy/AdvReac Type Severity Reaction Status Date / Time No Known Allergies Allergy Verified 01/16/22 15:44 Review of Systems ROS Statement: Those systems with pertinent positive or pertinent negative responses have been documented in the HPI. ROS Other: All systems not noted in ROS Statement are negative. Past Medical History Past Medical History: Diabetes Mellitus, Hyperlipidemia, Hypertension, Musculoskeletal Disorder, Osteoarthritis (OA), Prostate Disorder Additional Past Medical History / Comment(s): hx. 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 Past Anesthesia/Blood Transfusion Reactions: No Reported Reaction Past Psychological History: Anxiety Smoking Status: Never smoker Past Alcohol Use History: None Reported Past Drug Use History: None Reported - Past Family History Mother Family Medical History: No Reported History General Exam Limitations: no limitations General appearance: alert, in no apparent distress Head exam: Present: atraumatic Neck exam: Absent: tenderness, meningismus Respiratory exam: Present: normal lung sounds bilaterally. Absent: respiratory distress, accessory muscle use Cardiovascular Exam: Present: tachycardia GI/Abdominal exam: Present: soft, distended (Bladder), tenderness Back exam: Present: normal inspection. Absent: tenderness, CVA tenderness (R), CVA tenderness (L), muscle spasm, paraspinal tenderness, vertebral tenderness, rash noted Neurological exam: Present: alert, oriented X3, normal gait Psychiatric exam: Present: normal affect, normal mood Skin exam: Present: warm, dry, normal color. Absent: cyanosis, diaphoretic, petechiae, pallor Course Vital Signs 01/16/22 09:56 Temperature 97.7 F Pulse Rate 104 H Respiratory 18 Rate Blood Pressure 149/90 O2 Sat by Pulse 96 Oximetry EKG Findings - EKG Results: EKG shows: atrial fibrillation (Ventricular rate 121, QRS 0.94, QTC 0.297) Medical Decision Making - Medical Decision Making Patient presents with bladder distention and feeling of fullness even after urination since last night. He did see Dr. Post with urology yesterday and had a scope done in the office. Patient does have history of kidney stones. Bladder scan did show 1000ml of urine post void residual. London catheter was placed and patient states relief of discomfort. CT was done as patient stated that Dr Post told him he would need a CT if pain persists. CT shows an enlarged prostate with prosthetic concretion, no evidence of hydroureter or hydronephrosis. There is a 2 mm nonobstructing left renal calculus, no other urinary calculi. When obtaining discharge vital signs, RN noticed patient's heart rhythm was irregular. EKG was ordered and patient was found to be in A. fib with RVR with a rate of 120. This is new onset atrial fibrillation and patient will be admitted to the hospital with cardiology consult. I did speak with Dr. Kennedy, patient was placed on heparin and Cardizem drips with cardiology consult. - Lab Data Result diagrams: 01/16/22 11:52 01/16/22 11:52 Lab Results 01/16/22 01/16/22 01/16/22 Range/Units 11:45 11:52 11:52 WBC 13.5 H (3.8-10.6) k/uL RBC 4.62 (4.30-5.90) m/uL Hgb 14.3 (13.0-17.5) gm/dL Hct 42.4 (39.0-53.0) % MCV 91.9 (80.0-100.0) fL MCH 31.0 (25.0-35.0) pg MCHC 33.8 (31.0-37.0) g/dL RDW 13.3 (11.5-15.5) % Plt Count 174 (150-450) k/uL MPV 9.1 Neutrophils % 86 % Lymphocytes % 6 % Monocytes % 6 % Eosinophils % 0 % Basophils % 0 % Neutrophils # 11.7 H (1.3-7.7) k/uL Lymphocytes # 0.8 L (1.0-4.8) k/uL Monocytes # 0.8 (0-1.0) k/uL Eosinophils # 0.0 (0-0.7) k/uL Basophils # 0.0 (0-0.2) k/uL PT 9.8 (9.0-12.0) sec INR 0.9 (<1.2) APTT 19.5 L (22.0-30.0) sec Sodium (137-145) mmol/L Potassium (3.5-5.1) mmol/L Chloride (98-107) mmol/L Carbon Dioxide (22-30) mmol/L Anion Gap mmol/L BUN (9-20) mg/dL Creatinine (0.66-1.25) mg/dL Est GFR (CKD-EPI)AfAm (>60 ml/min/1.73 sqM) Est GFR (CKD-EPI)NonAf (>60 ml/min/1.73 sqM) Glucose (74-99) mg/dL Calcium (8.4-10.2) mg/dL Total Bilirubin (0.2-1.3) mg/dL AST (17-59) U/L ALT (4-49) U/L Alkaline Phosphatase (38-126) U/L Total Protein (6.3-8.2) g/dL Albumin (3.5-5.0) g/dL Urine Color Yellow Urine Appearance Clear (Clear) Urine pH 5.5 (5.0-8.0) Ur Specific Humphreys 1.013 (1.001-1.035) Urine Protein 1+ H (Negative) Urine Glucose (UA) 3+ H (Negative) Urine Ketones 2+ H (Negative) Urine Blood Moderate H (Negative) Urine Nitrite Negative (Negative) Urine Bilirubin Negative (Negative) Urine Urobilinogen <2.0 (<2.0) mg/dL Ur Leukocyte Esterase Trace H (Negative) Urine RBC 61 H (0-5) /hpf Urine WBC 8 H (0-5) /hpf Urine Bacteria Few H (None) /hpf Hyaline Casts 1 (0-2) /lpf Urine Mucus Rare H (None) /hpf 01/16/22 Range/Units 11:52 WBC (3.8-10.6) k/uL RBC (4.30-5.90) m/uL Hgb (13.0-17.5) gm/dL Hct (39.0-53.0) % MCV (80.0-100.0) fL MCH (25.0-35.0) pg MCHC (31.0-37.0) g/dL RDW (11.5-15.5) % Plt Count (150-450) k/uL MPV Neutrophils % % Lymphocytes % % Monocytes % % Eosinophils % % Basophils % % Neutrophils # (1.3-7.7) k/uL Lymphocytes # (1.0-4.8) k/uL Monocytes # (0-1.0) k/uL Eosinophils # (0-0.7) k/uL Basophils # (0-0.2) k/uL PT (9.0-12.0) sec INR (<1.2) APTT (22.0-30.0) sec Sodium 139 (137-145) mmol/L Potassium 4.4 (3.5-5.1) mmol/L Chloride 107 (98-107) mmol/L Carbon Dioxide 15 L (22-30) mmol/L Anion Gap 17 mmol/L BUN 14 (9-20) mg/dL Creatinine 0.79 (0.66-1.25) mg/dL Est GFR (CKD-EPI)AfAm >90 (>60 ml/min/1.73 sqM) Est GFR (CKD-EPI)NonAf >90 (>60 ml/min/1.73 sqM) Glucose 186 H (74-99) mg/dL Calcium 9.1 (8.4-10.2) mg/dL Total Bilirubin 1.3 (0.2-1.3) mg/dL AST 30 (17-59) U/L ALT 20 (4-49) U/L Alkaline Phosphatase 91 (38-126) U/L Total Protein 7.7 (6.3-8.2) g/dL Albumin 4.4 (3.5-5.0) g/dL Urine Color Urine Appearance (Clear) Urine pH (5.0-8.0) Ur Specific Humphreys (1.001-1.035) Urine Protein (Negative) Urine Glucose (UA) (Negative) Urine Ketones (Negative) Urine Blood (Negative) Urine Nitrite (Negative) Urine Bilirubin (Negative) Urine Urobilinogen (<2.0) mg/dL Ur Leukocyte Esterase (Negative) Urine RBC (0-5) /hpf Urine WBC (0-5) /hpf Urine Bacteria (None) /hpf Hyaline Casts (0-2) /lpf Urine Mucus (None) /hpf Disposition Clinical Impression: Urinary retention Disposition: HOME SELF-CARE Condition: Fair Instructions (If sedation given, give patient instructions): Urinary Retention in Men (ED) Additional Instructions: Follow-up with Dr. Post within the next 5 days for continuation of care. Continue your previously prescribed medications including your Flomax. Return to the emergency room if any new or concerning symptoms. Is patient prescribed a controlled substance at d/c from ED?: No Referrals: Lopez Mansfield DO [Primary Care Provider] - 1-2 days Trevor Post MD [STAFF PHYSICIAN] - 1-2 days Time of Disposition: 13:28
[2022-01-16 12:08] LABS: ALT 20 U/L (4-49); African American GFR (CKD) >90 (>60 ml/min/1.73 sqM); Albumin 4.4 g/dL (3.5-5.0); Anion Gap 17 mmol/L; Blood Urea Nitrogen 14 mg/dL (9-20); Calcium 9.1 mg/dL (8.4-10.2); Carbon Dioxide 15 mmol/L (22-30); Chloride 107 mmol/L (98-107); Glucose 186 mg/dL (74-99); Non-African American GFR(CKD) >90 (>60 ml/min/1.73 sqM); Sodium 139 mmol/L (137-145); Total Bilirubin 1.3 mg/dL (0.2-1.3); Total Protein 7.7 g/dL (6.3-8.2)
[2022-01-16 12:24] LABS: INR 0.9 (<1.2); Prothrombin Time 9.8 sec (9.0-12.0)
[2022-01-16 12:32] LABS: AST 30 U/L (17-59); Potassium 4.4 mmol/L (3.5-5.1)
[2022-01-16 12:33] LABS: Alkaline Phosphatase 91 U/L (38-126)
[2022-01-16 12:33] LABS: Appearance,Urine Clear (Clear); Bacteria,Urine Few /hpf; Bilirubin,Urine Negative (Negative); Blood,Urine Moderate (Negative); Color,Urine Yellow; Glucose,Urine (UA) 3+ (Negative); Hyaline Casts,Urine 1 /lpf (0-2); Leukocyte Esterase,Urine Trace (Negative); Mucus,Urine Rare /hpf; Nitrite,Urine Negative (Negative); PH, Urine 5.5 (5.0-8.0); Protein,Urine 1+ (Negative); RBC,Urine 61 /hpf (0-5); Specific Gravity,Urine 1.013 (1.001-1.035); Urobilinogen,Urine <2.0 mg/dL (<2.0); WBC,Urine 8 /hpf (0-5)
[2022-01-16 12:38] LABS: Ketones,Urine 2+ (Negative)
[2022-01-16 12:40] LABS: Partial Thromboplastin Time 19.5 sec (22.0-30.0)
--- NOTE | 2022-01-16 12:52 | CT ---
EXAMINATION TYPE: CT abdomen pelvis wo con DATE OF EXAM: 01/16/2022 COMPARISON: No previous CT scan is available for comparison HISTORY: urinary retention CT DLP: 1456.4 mGycm Automated exposure control for dose reduction was used. TECHNIQUE: Helical acquisition of images was performed from the lung bases through the pelvis. FINDINGS: LUNG BASES: No significant abnormality is appreciated. LIVER/GB: No significant abnormality is appreciated. PANCREAS: No significant abnormality is seen. SPLEEN: Splenic calcifications likely related to previous granulomatous infection. ADRENALS: No significant abnormality is seen. KIDNEYS: 2 mm nonobstructing calculus is seen at the midpole of the left kidney, otherwise no definit e radiodense urinary calculi. No hydroureter or hydronephrosis. Bilateral perinephric fat stranding a nd reactive fluid, nonspecific. FREE AIR: No free air is visualized RETROPERITONEAL ADENOPATHY: None visualized REPRODUCTIVE ORGANS: Enlarged prostate with prostatic concretion. Please correlate with PSA level. Un remarkable seminal vesicles. URINARY BLADDER: Collapsed over a [place] catheter PELVIC ADENOPATHY: No pathologically enlarged lymph nodes OSSEOUS STRUCTURES: Degenerative changes of the lower thoracic spine. BOWEL: Small sliding hiatal hernia. Unremarkable remainder of the stomach, duodenum and small bowel. Colonic diverticulosis most evident involving the sigmoid colon. No evidence of acute diverticulitis . Normal appendix. OTHER: Arterial atherosclerotic calcifications. No sizable ascites. Retroperitoneal fat stranding, no nspecific and may be seen in the pelvis. IMPRESSION: Enlarged prostate, please correlate with PSA level. Collapsed urinary bladder over a London catheter. No hydroureter or hydronephrosis. 2 mm nonobstructing left renal calculus. No other radiodense urinar y calculi. Other incidental findings as described above.
[2022-01-16] MEDS ORDERED: KETOROLAC 15 MG/ML 1 ML VIAL IVP STA (13:39)
[2022-01-16] MEDS ORDERED: HEPARIN SODIUM 1,000 UN/ML (10ML VL) IV ONE (14:54)
[2022-01-16] MEDS ORDERED: HEPARIN SODIUM 1,000 UN/ML (10ML VL) IV PRN (14:54)
[2022-01-16] MEDS ORDERED: NALOXONE 0.4 MG/ML 1 ML VIAL IV PRN (14:56)
[2022-01-16] MEDS ORDERED: ACETAMINOPHEN TAB 325 MG TAB PO PRN (14:56)
[2022-01-16] MEDS ORDERED: HYDROcodone/APAP 5-325MG 1 EACH TAB PO PRN (14:59)
[2022-01-16] MEDS ORDERED: DILTIAZEM 125 MG in SODIUM CHLORIDE 0.9% 100 ML IV SCH (15:00)
[2022-01-16] MEDS ORDERED: HEPARIN SOD,PORK IN 0.45% NACL 25,000 UNIT in 0.45% NACL 1 250ML.BAG IV SCH (15:00)
[2022-01-16] MEDS: SODIUM CHLORIDE 0.9% 1,000 ML IV SCH (15:10)
[2022-01-16 16:11] LABS: Basophils # (A) 0.1 k/uL (0-0.2); Basophils % (A) 0 %; Eosinophils # (A) 0.1 k/uL (0-0.7); Eosinophils % (A) 0 %; HCT 42.3 % (39.0-53.0); HGB 13.7 gm/dL (13.0-17.5); Lymphocytes # (A) 1.2 k/uL (1.0-4.8); Lymphocytes % (A) 8 %; MCH 30.1 pg (25.0-35.0); MCHC 32.5 g/dL (31.0-37.0); MCV 92.8 fL (80.0-100.0); Mean Platelet Volume 8.9; Monocytes # (A) 0.9 k/uL (0-1.0); Monocytes % (A) 6 %; Neutrophils # (A) 13.1 k/uL (1.3-7.7); Neutrophils % (A) 85 %; Platelet Count 176 k/uL (150-450); RBC 4.56 m/uL (4.30-5.90); RDW 12.6 % (11.5-15.5); WBC 15.5 k/uL (3.8-10.6)
[2022-01-16 16:40] LABS: Prothrombin Time 10.6 sec (9.0-12.0)
[2022-01-16 16:43] LABS: Partial Thromboplastin Time 67.5 sec (22.0-30.0)
[2022-01-16] MEDS: glipiZIDE 10 MG TAB PO SCH (18:33)
[2022-01-16 18:37] LABS: Basophils # (A) 0.1 k/uL (0-0.2); Basophils % (A) 0 %; Eosinophils % (A) 0 %; HCT 39.5 % (39.0-53.0); HGB 12.8 gm/dL (13.0-17.5); Lymphocytes % (A) 7 %; MCH 29.7 pg (25.0-35.0); MCHC 32.3 g/dL (31.0-37.0); MCV 91.7 fL (80.0-100.0); Mean Platelet Volume 8.7; Monocytes # (A) 0.9 k/uL (0-1.0); Monocytes % (A) 6 %; Neutrophils # (A) 12.1 k/uL (1.3-7.7); Neutrophils % (A) 85 %; Platelet Count 172 k/uL (150-450); RBC 4.31 m/uL (4.30-5.90); RDW 12.7 % (11.5-15.5); WBC 14.2 k/uL (3.8-10.6)
[2022-01-16 18:50] LABS: INR 0.9 (<1.2); Partial Thromboplastin Time 27.3 sec (22.0-30.0); Prothrombin Time 9.9 sec (9.0-12.0)
[2022-01-16] MEDS ORDERED: ATORVASTATIN 10 MG TAB PO SCH (21:00)
[2022-01-16] MEDS ORDERED: EZETIMIBE 10 MG TAB PO SCH (21:00)
[2022-01-16] MEDS ORDERED: NON FORMULARY DRUG (Sitagliptin Phos/Metformin Hcl [Janumet 50-1,000 Mg Tablet] 1 EACH Tab PO SCH (21:00)
--- NOTE | 2022-01-16 22:03 | P.HPIM ---
History of Present Illness H&P Date: 01/16/22 Chief Complaint: Lower abdominal discomfort Patient is a 66-year-old male with a known history of hypertension, hyperlipidemia, diabetes type 2 [id number], history of cervical decompression surgery on 12/28/2019, anxiety who was recently seen at his urologist office due to renal stones. Patient was seen by urology due to complaints of back pain for 1 week. Patient underwent cystoscopy in the office. There is no evidence of stone at the time and was told to return if any increased pain as he may need CT. Patient was discharged home and since then unable to urinate. Patient has been having retention since last night. Patient called Dr. Borges's office and was recommended to go to ER. KUB x-ray showed intermediate calcifications are present within the abdomen. There is underlying ileus or enteritis. CT of the abdomen pelvis in the ER showed enlarged prostate, please correlate with PSA level. Collapsed urinary bladder over London catheter. No hydroureter or hydronephrosis. 2 mm nonobstructing renal left calculus. No other radiodense urinary calculi. Laboratory data showed WBC 13.5 hemoglobin 14.3 and platelets 174 Sodium 139 potassium 4.4 chloride 107 bicarb is 15 BUN 17 and creatinine 0.79 Urinalysis showed 1+ protein 3+ glucose 2+ ketones blood and trace leukocyte esterase elevated RBCs and WBCs. EKG showed atrial fibrillation with rapid lactate. Review of Systems Constitutional: Patient denies any fever or chills . No generalized weakness or weight loss. Abdomen: Patient denied nausea vomiting and diarrhea and patient does have abdominal pain. Cardiovascular: Patient denies any chest pain or short of breath no palpitations. Respiratory: patient denied any cough is from production. No shortness of breath Neurologic: Patient denied any numbness or tingling headache. Musculoskeletal: Patient denies any complaints of joint swelling or deformity. Skin: Negative Psychiatric: Negative Endocrine: No heat or cold intolerance. No recent weight gain. Genitourinary: No dysuria or hematuria. All other 14 point ROS negative except the above Past Medical History Past Medical History: Diabetes Mellitus, Hyperlipidemia, Hypertension, Musculoskeletal Disorder, Osteoarthritis (OA), Prostate Disorder Additional Past Medical History / Comment(s): hx. 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 Past Anesthesia/Blood Transfusion Reactions: No Reported Reaction Past Psychological History: Anxiety Smoking Status: Never smoker Past Alcohol Use History: None Reported Past Drug Use History: None Reported - Past Family History Mother Family Medical History: No Reported History Medications and Allergies Home Medications Medication Instructions Recorded Confirmed Type Tamsulosin [Flomax] 0.4 mg PO DAILY 12/27/19 01/16/22 History glipiZIDE [Glucotrol] 10 mg PO BID 12/27/19 01/16/22 History Aspirin EC [Ecotrin] 325 mg PO DAILY PRN 01/16/22 01/16/22 History Apixaban [Eliquis Starter Pack 5 - 10 mg PO DIRECTED 30 Days 01/17/22 Rx (for VTE)] #1 each Metoprolol Succinate (ER) [Toprol 25 mg PO DAILY #30 tab 01/17/22 Rx XL] lisinopriL [Zestril] 20 mg PO QAM #30 tab 01/17/22 Rx Allergies Allergy/AdvReac Type Severity Reaction Status Date / Time No Known Allergies Allergy Verified 01/16/22 15:44 Physical Exam Vitals: Vital Signs Temp Pulse Resp BP Pulse Ox 01/16/22 15:00 117 H 18 146/77 01/16/22 14:00 135 H 20 139/79 01/16/22 13:00 110 H 18 129/88 01/16/22 09:56 97.7 F 104 H 18 149/90 96 Intake and Output 01/16/22 01/16/22 01/16/22 06:59 14:59 22:59 Output Total 999 Balance -999 Output: Post Void Residual 999 Other: Weight 113.398 kg PHYSICAL EXAMINATION: Patient is lying in the bed comfortably, no acute distress, awake alert and oriented.. HEENT: Normocephalic. Neck is supple. Pupils reactive. Nostrils clear. Oral cavity is moist. Neck reveals no JVD, carotid bruits, or thyromegaly. CHEST EXAMINATION: Trachea is central. Symmetrical expansion. Lung bull clear to auscultation and percussion. CARDIAC: Normal S1, S2 with no gallops. Irregular rhythm. ABDOMEN: Soft. Bowel sounds normal. No organomegaly. No abdominal bruits. Extremities: reveal no edema. No clubbing or cyanosis Neurologically awake, alert, oriented x3 with well-coordinated movements. No focal deficits noted Skin: No rash or skin lesions. Psychiatric: Coperative. Nonsuicidal Musculoskeletal: No joint swelling or deformity. Normal range of motion. Results CBC & Chem 7: 01/17/22 07:38 01/17/22 07:38 Labs: Abnormal Lab Results - Last 24 Hours (Table) 01/16/22 01/16/22 01/16/22 Range/Units 11:45 11:52 11:52 WBC 13.5 H (3.8-10.6) k/uL Neutrophils # 11.7 H (1.3-7.7) k/uL Lymphocytes # 0.8 L (1.0-4.8) k/uL APTT 19.5 L (22.0-30.0) sec Carbon Dioxide (22-30) mmol/L Glucose (74-99) mg/dL Urine Protein 1+ H (Negative) Urine Glucose (UA) 3+ H (Negative) Urine Ketones 2+ H (Negative) Urine Blood Moderate H (Negative) Ur Leukocyte Esterase Trace H (Negative) Urine RBC 61 H (0-5) /hpf Urine WBC 8 H (0-5) /hpf Urine Bacteria Few H (None) /hpf Urine Mucus Rare H (None) /hpf 01/16/22 01/16/22 01/16/22 Range/Units 11:52 15:52 15:52 WBC 15.5 H (3.8-10.6) k/uL Neutrophils # 13.1 H (1.3-7.7) k/uL Lymphocytes # (1.0-4.8) k/uL APTT 67.5 H (22.0-30.0) sec Carbon Dioxide 15 L (22-30) mmol/L Glucose 186 H (74-99) mg/dL Urine Protein (Negative) Urine Glucose (UA) (Negative) Urine Ketones (Negative) Urine Blood (Negative) Ur Leukocyte Esterase (Negative) Urine RBC (0-5) /hpf Urine WBC (0-5) /hpf Urine Bacteria (None) /hpf Urine Mucus (None) /hpf Thrombosis Risk Factor Assmnt - DVT/VTE Prophylaxis DVT/VTE Prophylaxis: Pharmacologic Prophylaxis ordered Assessment and Plan Assessment: Acute urinary retention with recent cystoscopy at urologist office. New onset atrial fibrillation with rapid regular rate Hypertension Hyperlipidemia Diabetes type 2 [id number] History of cervical decompression and fusion on 12/28/2019 Anxiety History of renal stones and left renal calculi nonobstructing. DVT prophylaxis. Plan: Status post [place] catheter placement. Continue with Flomax. Patient will be continued on telemetry monitoring. Patient was started on heparin drip and Cardizem drip. Continue with home with home medications and cardiology was consulted. Continue with home medications. Follow-up closely. Time with Patient: Greater than 30
[2022-01-16] MEDS: DOCUSATE 100 MG CAP PO PRN (22:54)
[2022-01-17 00:42] LABS: Basophils # (A) 0.1 k/uL (0-0.2); Basophils % (A) 0 %; Eosinophils # (A) 0.1 k/uL (0-0.7); Eosinophils % (A) 0 %; HCT 39.6 % (39.0-53.0); HGB 12.9 gm/dL (13.0-17.5); Lymphocytes # (A) 1.2 k/uL (1.0-4.8); Lymphocytes % (A) 9 %; MCHC 32.6 g/dL (31.0-37.0); MCV 92.1 fL (80.0-100.0); Mean Platelet Volume 8.6; Monocytes # (A) 1.2 k/uL (0-1.0); Monocytes % (A) 8 %; Neutrophils # (A) 11.5 k/uL (1.3-7.7); Neutrophils % (A) 81 %; Platelet Count 170 k/uL (150-450); RDW 12.7 % (11.5-15.5); WBC 14.2 k/uL (3.8-10.6)
[2022-01-17] MEDS: SODIUM CHLORIDE 0.9% 1,000 ML IV SCH (03:07)
[2022-01-17 06:25] LABS: Glucose,Whole Blood 131 mg/dL (70-110)
[2022-01-17] MEDS: INSULIN ASPART (NovoLOG) 100 UNIT/ML VIAL SQ SCH ×2 (06:26→12:49)
[2022-01-17] MEDS: glipiZIDE 10 MG TAB PO SCH (06:36)
[2022-01-17 08:20] LABS: Basophils % (A) 0 %; Eosinophils % (A) 0 %; HCT 38.6 % (39.0-53.0); HGB 12.7 gm/dL (13.0-17.5); Lymphocytes # (A) 1.1 k/uL (1.0-4.8); Lymphocytes % (A) 10 %; MCH 30.7 pg (25.0-35.0); MCV 93.1 fL (80.0-100.0); Mean Platelet Volume 8.4; Monocytes # (A) 0.7 k/uL (0-1.0); Monocytes % (A) 6 %; Neutrophils # (A) 9.1 k/uL (1.3-7.7); Neutrophils % (A) 82 %; Platelet Count 191 k/uL (150-450); RBC 4.15 m/uL (4.30-5.90); RDW 13.4 % (11.5-15.5); WBC 11.1 k/uL (3.8-10.6)
[2022-01-17 08:37] LABS: African American GFR (CKD) >90 (>60 ml/min/1.73 sqM); Anion Gap 11 mmol/L; Blood Urea Nitrogen 15 mg/dL (9-20); Calcium 8.7 mg/dL (8.4-10.2); Carbon Dioxide 23 mmol/L (22-30); Chloride 103 mmol/L (98-107); Glucose 130 mg/dL (74-99); Non-African American GFR(CKD) >90 (>60 ml/min/1.73 sqM); Potassium 3.7 mmol/L (3.5-5.1); Sodium 137 mmol/L (137-145)
[2022-01-17 08:54] LABS: INR 0.9 (<1.2); Partial Thromboplastin Time 28.9 sec (22.0-30.0)
[2022-01-17] MEDS ORDERED: TAMSULOSIN 0.4 MG CAP.ER.24H PO SCH ×2 (09:00→21:00)
[2022-01-17] MEDS ORDERED: amLODIPine 5 MG TAB PO SCH (09:00)
[2022-01-17] MEDS ORDERED: lisinopriL 20 MG TAB PO SCH (09:00)
[2022-01-17] MEDS ORDERED: METOPROLOL SUCCINATE (ER) 25 MG TAB.ER.24H PO SCH (09:00)
[2022-01-17] MEDS: DOCUSATE 100 MG CAP PO PRN (09:41)
[2022-01-17 11:01] VITALS: RESP 18
[2022-01-17 11:46] LABS: Glucose,Whole Blood 156 mg/dL (70-110)
[2022-01-17] MEDS ORDERED: APIXABAN 5 MG TAB PO SCH ×2 (12:00→12:30)
[2022-01-17] MEDS ORDERED: polyethylene glycoL 3350 17 GM POWD.PACK PO STA (12:05)
--- NOTE | 2022-01-17 12:21 | CA ---
Transthoracic Echo Report Name: William Dennis Age: 66 Gender: M : 1955 Exam Date: 01/17/2022 09:13 Exam Location: [facility] Ht (in): 69 Wt (lb): 250 Ordering Physician: Parveen Boland Attending/Referring Phys: Oncology Radiation Physician Patricia Vilchis, COLLIN Procedure CPT: Indications: afib with RVR new onset Cardiac Hx: Technical Quality: Good Contrast 1: Total Dose (mL): Contrast 2: Total Dose (mL): MEASUREMENTS (Male / Female) Normal Values 2D ECHO LV Diastolic Diameter PLAX 5.6 cm 4.2 - 5.9 / 3.9 - 5.3 cm LV Systolic Diameter PLAX 3.7 cm IVS Diastolic Thickness 1.1 cm 0.6 - 1.0 / 0.6 - 0.9 cm LVPW Diastolic Thickness 1.3 cm 0.6 - 1.0 / 0.6 - 0.9 cm LV Relative Wall Thickness 0.4 RV Internal Dim ED PLAX 3.0 cm LA Systolic Diameter LX 4.9 cm 3.0 - 4.0 / 2.7 - 3.8 cm M-MODE Aortic Root Diameter MM 3.2 cm LA Systolic Diameter MM 4.1 cm LA Ao Ratio MM 1.3 MV E Point Septal Separation 0.7 cm AV Cusp Separation MM 2.0 cm DOPPLER MV E' Velocity 11.1 cm/s TR Peak Velocity 278.0 cm/s TR Peak Gradient 30.9 mmHg Right Ventricular Systolic Press 33.5 mmHg FINDINGS Left Ventricle Normal Left ventricular size, wall thickness, systolic function with no obvious regional wall motion abnormalities. Ejection fraction is about 55% Right Ventricle Normal right ventricular size and function. Right ventricular systolic pressure within normal limits. Right Atrium Normal right atrial size. Left Atrium Moderately increased left atrial diameter. Mitral Valve Structurally normal mitral valve. Mild mitral regurgitation. Aortic Valve Trileaflet aortic valve. Aortic valve sclerosis. Tricuspid Valve Structurally normal tricuspid valve. Mild tricuspid regurgitation. Pulmonic Valve Pulmonic valve not well visualized. Pericardium Echo free space anterior to the right ventricle likely represents a fat pad. Aorta Normal size aortic root and proximal ascending aorta. CONCLUSIONS Normal LV size and systolic function. No significant abnormality on the Doppler exam. No pericardial effusion Previewed by: Dr. Fermin Mitchell MD (Electronically Signed) Final Date: 17 January 2022 12:21
--- NOTE | 2022-01-17 13:45 | CONS ---
CONSULTATION William Dennis is a 66-year-old gentleman with history of [id number] diabetes and hypertension who presented to hospital following a cystoscopy that he had two days ago. He has an indwelling catheter and has hematuria. He developed an episode of atrial fibrillation, for which Cardiology had been consulted. He converted back to sinus rhythm and this morning he is in normal sinus rhythm. He does not have any cardiac symptoms. Denies chest pain, difficulty in breathing, sustained palpitations, dizziness or syncope. There is no history of focal neurological deficits. There is no history of leg edema, PND or orthopnea. The patient does not have history of prior atrial fibrillation. He is fairly active physically and never had any cardiac symptoms. At the time of my evaluation, his heart rate is 70 beats per minute. Blood pressure is 120/60, respiratory rate is 18. Chest exam reveals good air entry bilaterally. Heart exam reveals first and second heart sounds. No gallop. No murmur. No rub. Abdomen is soft, nontender. Examination of extremities did not reveal any edema. Peripheral pulses are palpable. [employer] exam did not reveal focal neurological deficits. Labs show a hemoglobin of 12.7, platelet count is 190, potassium is 3.7 creatinine is 0.87. ASSESSMENT: 1. Paroxysmal atrial fibrillation. 2. Vzj-woadcyz-xmkwxecod diabetes. 3. Hypertension. 4. Prostatic hypertrophy. PLAN: The patient is on IV heparin. I will stop the amlodipine and start him on Toprol-XL 25 mg daily. I will obtain a 2D echo and I will start him on Eliquis 5 mg b.i.d. if it is okay with the urologist. MMODL / TOSINN: [id number] /
[2022-01-17 16:25] LABS: Glucose,Whole Blood 159 mg/dL (70-110)
--- NOTE | 2022-01-17 16:46 | P.GSCN ---
History of Present Illness Consult date: 01/17/22 Reason for Consult: urinary retention History of present illness: this is a 66-year-old male patient of Dr. Post that follows up with him for BPH. admitted to the hospital with A. fib, and urinary retention. The Dominguez catheter was inserted for a postvoid residual of greater than a liter. He indicated for the past week he has been having difficulty voiding and penile pain, but the pain significantly worsened yesterday and he presented to the hospital with abdominal pain. No previous history of retention, he recently underwent a cystoscopy with Dr. Post that was negative. On presentation underwent a CT abdomen and pelvis that showed no acute process, and only evidence of a 2 mm left-sided renal stone. Since the Dominguez catheter placement in place his abdominal pain has significantly improved. Urine is blood-tinged this morning but no clots. Review of Systems - Constitutional Denies fever, Denies weight loss - Cardiovascular Denies chest pain, Denies shortness of breath - Respiratory Denies cough, Denies 7 - Gastrointestinal Reports abdominal pain - Genitourinary Reports flank pain, Reports urinary retention, Denies dysuria - Integumentary Denies rash, Denies unusual bruising - Neurological Denies headaches, Denies syncope Past Medical History Past Medical History: Diabetes Mellitus, Hyperlipidemia, Hypertension, Musculoskeletal Disorder, Osteoarthritis (OA), Prostate Disorder Additional Past Medical History / Comment(s): hx. 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 Past Anesthesia/Blood Transfusion Reactions: No Reported Reaction Past Psychological History: Anxiety Smoking Status: Never smoker Past Alcohol Use History: None Reported Past Drug Use History: None Reported - Past Family History Mother Family Medical History: No Reported History Medications and Allergies Home Medications Medication Instructions Recorded Confirmed Type Tamsulosin [Flomax] 0.4 mg PO DAILY 12/27/19 01/16/22 History glipiZIDE [Glucotrol] 10 mg PO BID 12/27/19 01/16/22 History Aspirin EC [Ecotrin] 325 mg PO DAILY PRN 01/16/22 01/16/22 History Apixaban [Eliquis Starter Pack 5 - 10 mg PO DIRECTED 30 Days 01/17/22 Rx (for VTE)] #1 each Metoprolol Succinate (ER) [Toprol 25 mg PO DAILY #30 tab 01/17/22 Rx XL] lisinopriL [Zestril] 20 mg PO QAM #30 tab 01/17/22 Rx Allergies Allergy/AdvReac Type Severity Reaction Status Date / Time No Known Allergies Allergy Verified 01/16/22 15:44 Surgical - Exam Vital Signs Temp Pulse Resp BP Pulse Ox 97.7 F 104 H 18 149/90 96 01/16/22 09:56 01/16/22 09:56 01/16/22 09:56 01/16/22 09:56 01/16/22 09:56 - General no distress, no pain - Eyes normal ocular movement, no pale - ENT normal nares, normal mucosa - Respiratory normal expansion, normal respiratory effort - Abdomen Abdomen: soft, non tender - Genitourinary dominguez with blood-tinged urine Results - Labs 01/17/22 07:38 01/17/22 07:38 Abnormal Lab Results - Last 24 Hours (Table) 01/16/22 01/16/22 01/17/22 Range/Units 15:52 18:04 00:16 WBC 14.2 H 14.2 H (3.8-10.6) k/uL RBC (4.30-5.90) m/uL Hgb 12.8 L 12.9 L (13.0-17.5) gm/dL Hct (39.0-53.0) % Neutrophils # 12.1 H 11.5 H (1.3-7.7) k/uL Monocytes # 1.2 H (0-1.0) k/uL APTT 67.5 H (22.0-30.0) sec Glucose (74-99) mg/dL POC Glucose (mg/dL) (70-110) mg/dL 01/17/22 01/17/22 01/17/22 Range/Units 06:24 07:38 07:38 WBC 11.1 H (3.8-10.6) k/uL RBC 4.15 L (4.30-5.90) m/uL Hgb 12.7 L (13.0-17.5) gm/dL Hct 38.6 L (39.0-53.0) % Neutrophils # 9.1 H (1.3-7.7) k/uL Monocytes # (0-1.0) k/uL APTT (22.0-30.0) sec Glucose 130 H (74-99) mg/dL POC Glucose (mg/dL) 131 H (70-110) mg/dL 01/17/22 01/17/22 Range/Units 11:44 16:23 WBC (3.8-10.6) k/uL RBC (4.30-5.90) m/uL Hgb (13.0-17.5) gm/dL Hct (39.0-53.0) % Neutrophils # (1.3-7.7) k/uL Monocytes # (0-1.0) k/uL APTT (22.0-30.0) sec Glucose (74-99) mg/dL POC Glucose (mg/dL) 156 H 159 H (70-110) mg/dL Diabetes panel 01/17/22 Range/Units 07:38 Sodium 137 (137-145) mmol/L Potassium 3.7 (3.5-5.1) mmol/L Chloride 103 (98-107) mmol/L Carbon Dioxide 23 (22-30) mmol/L BUN 15 (9-20) mg/dL Creatinine 0.84 (0.66-1.25) mg/dL Glucose 130 H (74-99) mg/dL Calcium 8.7 (8.4-10.2) mg/dL Thyroid panel 01/17/22 Range/Units 07:38 TSH 3.260 (0.465-4.680) mIU/L Calcium panel 01/17/22 Range/Units 07:38 Calcium 8.7 (8.4-10.2) mg/dL Pituitary panel 01/17/22 Range/Units 07:38 Sodium 137 (137-145) mmol/L Potassium 3.7 (3.5-5.1) mmol/L Chloride 103 (98-107) mmol/L Carbon Dioxide 23 (22-30) mmol/L BUN 15 (9-20) mg/dL Creatinine 0.84 (0.66-1.25) mg/dL Glucose 130 H (74-99) mg/dL Calcium 8.7 (8.4-10.2) mg/dL TSH 3.260 (0.465-4.680) mIU/L Adrenal panel 01/17/22 Range/Units 07:38 Sodium 137 (137-145) mmol/L Potassium 3.7 (3.5-5.1) mmol/L Chloride 103 (98-107) mmol/L Carbon Dioxide 23 (22-30) mmol/L BUN 15 (9-20) mg/dL Creatinine 0.84 (0.66-1.25) mg/dL Glucose 130 H (74-99) mg/dL Calcium 8.7 (8.4-10.2) mg/dL Assessment and Plan Assessment: 66-year-old male with 1 L urinary retention, history of BPH on Flomax. No previous history of retention -Okay to continue antibiotic regulation from urology standpoint -We'll increase Flomax to twice a day -Follow up in [address] Hewitt for trial of void
[2022-01-17 16:48] VITALS: BP 145/67; PULSE 77; TEMP 97.9
== END 2022-01-17 18:45 | disposition home or self-care (01) | DRG 726 ==
LOC: EC 09:54 → 3SCARD 15:01
PROVIDERS: ADMIT Internal Medicine; ATTEND Internal Medicine
DX: N40.1 Benign prostatic hyperplasia with lower urinary tract symptoms (principal); K56.7 Ileus, unspecified; I48.0 Paroxysmal atrial fibrillation; E11.9 Type 2 diabetes mellitus without complications; E78.5 Hyperlipidemia, unspecified; F41.9 Anxiety disorder, unspecified; I10 Essential (primary) hypertension; K52.9 Noninfective gastroenteritis and colitis, unspecified; N20.0 Calculus of kidney; N32.89 Other specified disorders of bladder; R33.8 Other retention of urine; Z28.21 Immunization not carried out because of patient refusal; Z79.82 Long term (current) use of aspirin; Z79.84 Long term (current) use of oral hypoglycemic drugs; Z79.899 Other long term (current) drug therapy; Z87.442 Personal history of urinary calculi; Z98.1 Arthrodesis status; Z98.890 Other specified postprocedural states
CPT/HCPCS: 36415; 51702; 51798; 74018; 74176; 80048; 80053; 81001; 83036; 83970; 84443; 85025; 85610; 85730; 93005; 93306; 96365; 96366; 96368; 96375; 99285

== ENCOUNTER 2022-01-20 12:05 | Emergency (ER) | payer MEDICARE ==
[2022-01-20 12:33] VITALS: TEMP 98.2
[2022-01-20 16:04] LABS: Basophils # (A) 0.1 k/uL (0-0.2); Basophils % (A) 0 %; Eosinophils # (A) 0.1 k/uL (0-0.7); Eosinophils % (A) 1 %; HCT 38.9 % (39.0-53.0); HGB 13.1 gm/dL (13.0-17.5); Lymphocytes # (A) 1.4 k/uL (1.0-4.8); Lymphocytes % (A) 11 %; MCHC 33.8 g/dL (31.0-37.0); MCV 91.8 fL (80.0-100.0); Mean Platelet Volume 8.1; Monocytes # (A) 0.6 k/uL (0-1.0); Monocytes % (A) 5 %; Neutrophils # (A) 10.2 k/uL (1.3-7.7); Neutrophils % (A) 82 %; Platelet Count 240 k/uL (150-450); RBC 4.24 m/uL (4.30-5.90); RDW 12.5 % (11.5-15.5); WBC 12.5 k/uL (3.8-10.6)
[2022-01-20 16:10] LABS: Amorphous Sediment,Urine Rare /hpf; Appearance,Urine Cloudy (Clear); Bacteria,Urine Rare /hpf; Bilirubin,Urine Negative (Negative); Blood,Urine Moderate (Negative); Color,Urine Light Yellow; Glucose,Urine (UA) Negative (Negative); Ketones,Urine 2+ (Negative); Leukocyte Esterase,Urine Small (Negative); Mucus,Urine Rare /hpf; Nitrite,Urine Negative (Negative); Protein,Urine Trace (Negative); RBC,Urine 4 /hpf (0-5); Specific Gravity,Urine 1.011 (1.001-1.035); Triple Phosphate Crystal,Urine Rare /hpf; Urobilinogen,Urine <2.0 mg/dL (<2.0); WBC,Urine 4 /hpf (0-5)
[2022-01-20 16:11] LABS: Partial Thromboplastin Time 27.7 sec (22.0-30.0); Prothrombin Time 10.4 sec (9.0-12.0)
--- NOTE | 2022-01-20 16:18 | XR ---
EXAMINATION TYPE: XR chest 1V portable DATE OF EXAM: 01/20/2022 COMPARISON: X-ray dated 12/21/2019 HISTORY: Weakness TECHNIQUE: Single frontal view of the chest is obtained. FINDINGS: Enlarged cardiac shadow, probably due to prominent epicardial fat-pad however true cardiomegaly canno t be excluded. Suspected small atelectasis in the lung bases bilaterally. Elevated right hemidiaphragm, appreciated previously. Grossly unremarkable lungs otherwise. No sizabl e pleural effusion or definite pneumothorax. Lower cervical spine fixation. IMPRESSION: As above.
[2022-01-20] MEDS ORDERED: SODIUM CHLORIDE 0.9% 500 ML 500 ML IV STA (16:42)
--- NOTE | 2022-01-20 16:45 | ED ---
General Adult HPI - General Chief complaint: Weakness Stated complaint: Weakness/revisit Time Seen by Provider: 01/20/22 15:00 Source: patient, RN notes reviewed, old records reviewed Mode of arrival: wheelchair Limitations: no limitations - History of Present Illness Initial comments: Patient is a 66-year-old male who presents emergency Department with multiple complaints. He was recently discharged after being diagnosed with new onset atrial fibrillation, urinary retention due to enlarged prostate with London catheter and leg bag in place, as well as constipation who presents emergency Department primarily complaining of bilateral lower extremity weakness. Is also complaining of right upper extremity weakness. Does have a history of cervical spinal surgery. States that these symptoms began 2 years ago prior to the surgery. They're reoccurring over the last 2 days at this time. Does endorse some mild lower lumbar spine pain. Also endorses intermittent abdominal pain. Does not believe he is constipated as he did have a large bowel movement yesterday following an enema. Denies any chest pain, shortness of breath. Denies any nausea or vomiting. Endorses occasional pressure sensation in the bladder. Is uncertain what is causing his current weakness bilaterally, and presents primarily for evaluation for this. He did receive a CT last week which did not remark on anything obvious. Denies any other acute complaints at this t pramod. Presents for further evaluation at this time. States he does not want to be admitted if it is avoidable. - Related Data Home Medications Medication Instructions Recorded Confirmed Tamsulosin [Flomax] 0.4 mg PO DAILY 12/27/19 01/20/22 glipiZIDE [Glucotrol] 10 mg PO BID 12/27/19 01/20/22 Aspirin EC [Ecotrin] 325 mg PO DAILY PRN 01/16/22 01/20/22 Apixaban [Eliquis Starter Pack See Taper PO DIRECTED 01/20/22 01/20/22 (for VTE)] lisinopriL [Zestril] 20 mg PO DAILY 01/20/22 01/20/22 Previous Rx's Medication Instructions Recorded Metoprolol Succinate (ER) [Toprol 25 mg PO DAILY #30 tab 01/17/22 XL] Allergies Allergy/AdvReac Type Severity Reaction Status Date / Time No Known Allergies Allergy Verified 01/20/22 16:38 Review of Systems ROS Statement: Those systems with pertinent positive or pertinent negative responses have been documented in the HPI. Review of Systems: CONST: Denies fever EYES: Denies blurry vision ENT: Denies nasal congestion C/V: Denies Chest pain RESP: Denies shortness of breath GI: Endorses intermittent abdominal pain. None currently. : Endorses urinary retention, resolved with indwelling London catheter SKIN: Denies rash. MSK: Denies joint pain. NEURO: Denies headache ROS Other: All systems not noted in ROS Statement are negative. Past Medical History Past Medical History: Diabetes Mellitus, Hyperlipidemia, Hypertension, Musculoskeletal Disorder, Osteoarthritis (OA), Prostate Disorder Additional Past Medical History / Comment(s): hx. 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 Past Anesthesia/Blood Transfusion Reactions: No Reported Reaction Past Psychological History: Anxiety Smoking Status: Never smoker Past Alcohol Use History: None Reported Past Drug Use History: None Reported - Past Family History Mother Family Medical History: No Reported History General Exam - General Exam Comments Initial Comments: General: Appears in no acute distress. HEAD: Normal with no signs of head trauma. EYES: PERRLA, EOMI, conjunctiva normal, no discharge. Pupils are 3 mm and equal bilaterally. ENT: Hearing grossly intact, normal oropharynx. RESPIRATORY: Clear breath sounds bilaterally. No wheezes, rales, or rhonchi. C/V: Regular rate and rhythm. S1 and S2 auscultated, no edema, peripheral pulses 2+ and intact throughout ABD: Abd is soft, nontender, nondistended. Indwelling London catheter is present. EXT: Normal range of motion, no obvious deformity SKIN: No rashes or lesions observed on exposed skin. NEURO: Alert and oriented 4. Cranial nerves II through XII appear to be intact. Patient has 4-5 strength in bilateral lower extremities. Patient has 4 out of 5 strength in the right upper extremity. 5 out of 5 strength in the left upper extremity. No sensory deficits. No cerebellar dysfunction as evident by normal finger to nose testing. GCS is 15. No other deficits at this time. Limitations: no limitations Course Vital Signs 01/20/22 01/20/22 12:29 20:49 Temperature 98.2 F Pulse Rate 77 62 Respiratory 18 16 Rate Blood Pressure 156/83 143/72 O2 Sat by Pulse 98 95 Oximetry Medical Decision Making - Medical Decision Making Based on the patient's presentation and physical exam, I'm concerned for possible spinal stenosis or compression. On reevaluation of his past medical history, he does have a history of this. He is 2 days of this. Symptoms are intermittent. I'm uncertain if it is related to his urinary incontinence or not. He has no saddle anesthesia. No other red flag symptoms. I did recommend we obtain CT imaging of the spine, brain, abdomen due to his symptoms as well as obtain basic laboratory studies and an screening EKG. He was in agreement this plan. He is otherwise resting comfortably at this time with vital signs within normal limits and stable. London catheter is actively draining. Urine is within normal limits. EKG showed no signs of acute ischemia.Chest x-ray revealed no acute cardiopulmonary process. This showed an epicardial fat pad as well as over the right hemidiaphragm which could be chronic. Laboratory studies are remarkable for slight leukocytosis of 12.5 which is likely reactive. Urinalysis shows signs of dehydration with no infection. There is a large delay in obtaining CT imaging. Patient initially went down for imaging, became anxious, and required Ativan administration. However there was a delay in repeating the imaging as he was delayed due to priority cases in the CT scanner. Eventually, I did go with the patient and start next to him to help with anxiety while wearing protective lead. He tolerated the procedure well at this time. This is after multiple re-evaluations for his anxiety as well as multiple discussions with family regarding constipation as well as his lower extremity weakness. CT imaging after being read revealed diverticulosis without diverticulitis, a known enlarged prostate, otherwise no other acute abnormality in the abdomen or pelvis. CT of the T and L spines revealed some spinal stenosis at L2-L3 and L4-L5. CT brain and C-spine revealed a known arachnoid cyst the left medial cranial fossa but no other acute intracranial abnormality. At this time on reevaluation, patient remains stable. Symptoms are unchanged. He has no red flag symptoms of the bilateral lower extremity weakness. Urinary retention occurred prior to the weakness and was likely secondary to the enlarged prostate. He is having no incontinence, urinary or bowel. No saddle anesthesia. I discussed at length with him the concern for possible spinal cord compression, particularly of these stenotic regions of the lumbar spine. He states he does not want to stay for an MRI here and would prefer to seek one out patient at an open MRI center due to his anxiety and familiarity with it. He would not like to be admitted at this time. Patient does appear to be at his normal baseline. He would like to attempt to go home with follow-up. I believe this is reasonable with strict return precautions. He was in agreement with this plan. Patient previously saw Dr. Murillo, who I will provide contact information for. Recommended MRI outpatient. I instructed the patient to follow up with their PCP in the next 3 days. I provided contact information for follow up with Dr. Murillo. I explained that the patient should return to the emergency department if they experience any worsening symptoms. Strict return precautions were discussed with the patient. The patient expressed understanding of these instructions. I answered all questions that the patient had. The patient was discharged home in fair condition with their prescriptions and follow up information. - Lab Data Result diagrams: 01/20/22 15:41 01/20/22 16:18 Lab Results 01/20/22 01/20/22 01/20/22 Range/Units 15:41 15:41 15:41 WBC 12.5 H (3.8-10.6) k/uL RBC 4.24 L (4.30-5.90) m/uL Hgb 13.1 (13.0-17.5) gm/dL Hct 38.9 L (39.0-53.0) % MCV 91.8 (80.0-100.0) fL MCH 31.0 (25.0-35.0) pg MCHC 33.8 (31.0-37.0) g/dL RDW 12.5 (11.5-15.5) % Plt Count 240 (150-450) k/uL MPV 8.1 Neutrophils % 82 % Lymphocytes % 11 % Monocytes % 5 % Eosinophils % 1 % Basophils % 0 % Neutrophils # 10.2 H (1.3-7.7) k/uL Lymphocytes # 1.4 (1.0-4.8) k/uL Monocytes # 0.6 (0-1.0) k/uL Eosinophils # 0.1 (0-0.7) k/uL Basophils # 0.1 (0-0.2) k/uL PT 10.4 (9.0-12.0) sec INR 1.0 (<1.2) APTT 27.7 (22.0-30.0) sec Sodium (137-145) mmol/L Potassium (3.5-5.1) mmol/L Chloride (98-107) mmol/L Carbon Dioxide (22-30) mmol/L Anion Gap mmol/L BUN (9-20) mg/dL Creatinine (0.66-1.25) mg/dL Est GFR (CKD-EPI)AfAm (>60 ml/min/1.73 sqM) Est GFR (CKD-EPI)NonAf (>60 ml/min/1.73 sqM) Glucose (74-99) mg/dL Calcium (8.4-10.2) mg/dL Magnesium (1.6-2.3) mg/dL Total Bilirubin (0.2-1.3) mg/dL AST (17-59) U/L ALT (4-49) U/L Alkaline Phosphatase (38-126) U/L Total Protein (6.3-8.2) g/dL Albumin (3.5-5.0) g/dL Urine Color Light Yellow Urine Appearance Cloudy (Clear) Urine pH 5.0 (5.0-8.0) Ur Specific [place] 1.011 (1.001-1.035) Urine Protein Trace H (Negative) Urine Glucose (UA) Negative (Negative) Urine Ketones 2+ H (Negative) Urine Blood Moderate H (Negative) Urine Nitrite Negative (Negative) Urine Bilirubin Negative (Negative) Urine Urobilinogen <2.0 (<2.0) mg/dL Ur Leukocyte Esterase Small H (Negative) Urine RBC 4 (0-5) /hpf Urine WBC 4 (0-5) /hpf Triple Phos Crystals Rare H (None) /hpf Amorphous Sediment Rare H (None) /hpf Urine Bacteria Rare H (None) /hpf Urine Mucus Rare H (None) /hpf 01/20/22 Range/Units 16:18 WBC (3.8-10.6) k/uL RBC (4.30-5.90) m/uL Hgb (13.0-17.5) gm/dL Hct (39.0-53.0) % MCV (80.0-100.0) fL MCH (25.0-35.0) pg MCHC (31.0-37.0) g/dL RDW (11.5-15.5) % Plt Count (150-450) k/uL MPV Neutrophils % % Lymphocytes % % Monocytes % % Eosinophils % % Basophils % % Neutrophils # (1.3-7.7) k/uL Lymphocytes # (1.0-4.8) k/uL Monocytes # (0-1.0) k/uL Eosinophils # (0-0.7) k/uL Basophils # (0-0.2) k/uL PT (9.0-12.0) sec INR (<1.2) APTT (22.0-30.0) sec Sodium 137 (137-145) mmol/L Potassium 3.6 (3.5-5.1) mmol/L Chloride 103 (98-107) mmol/L Carbon Dioxide 28 (22-30) mmol/L Anion Gap 6 mmol/L BUN 16 (9-20) mg/dL Creatinine 0.75 (0.66-1.25) mg/dL Est GFR (CKD-EPI)AfAm >90 (>60 ml/min/1.73 sqM) Est GFR (CKD-EPI)NonAf >90 (>60 ml/min/1.73 sqM) Glucose 176 H (74-99) mg/dL Calcium 8.5 (8.4-10.2) mg/dL Magnesium 2.2 (1.6-2.3) mg/dL Total Bilirubin 0.3 (0.2-1.3) mg/dL AST 33 (17-59) U/L ALT 22 (4-49) U/L Alkaline Phosphatase 88 (38-126) U/L Total Protein 6.5 (6.3-8.2) g/dL Albumin 3.6 (3.5-5.0) g/dL Urine Color Urine Appearance (Clear) Urine pH (5.0-8.0) Ur Specific [place] (1.001-1.035) Urine Protein (Negative) Urine Glucose (UA) (Negative) Urine Ketones (Negative) Urine Blood (Negative) Urine Nitrite (Negative) Urine Bilirubin (Negative) Urine Urobilinogen (<2.0) mg/dL Ur Leukocyte Esterase (Negative) Urine RBC (0-5) /hpf Urine WBC (0-5) /hpf Triple Phos Crystals (None) /hpf Amorphous Sediment (None) /hpf Urine Bacteria (None) /hpf Urine Mucus (None) /hpf - EKG Data -: EKG Interpreted by Me EKG Comments: 12-lead Electrocardiogram Interpretation Note EKG was reviewed and interpreted by myself. 12-lead ECG performed at 1545 is interpreted by me as revealing normal sinus rhythm at a rate of 71 beats per minute. [place] is normal. ME interval is 159 ms, QRS duration is 102 ms, QTc is 429 ms.. There were no ST or T wave abnormalities to suggest myocardial ischemia or injury. R wave progression across the precordium was satisfactory. By my interpretation this EKG is non-diagnostic for acute ischemia. Critical Care Time Critical Care Time: Yes Total Critical Care Time: 35 Critical Care Time: Upon my evaluation, this patient had a high probability of imminent or life- threatening deterioration due to bilateral lower extremity weakness, family education, frequent re-evaluations to monitor for decompensation, which required my direct attention, intervention, and personal management. I have personally provided 35 minutes of critical care time exclusive of time spent on separately billable procedures. Time includes review of laboratory data, radiology results, discussion with consultants, and monitoring for potential decompensation. Interventions were performed as documented in my note. Disposition Clinical Impression: Lower extremity weakness Disposition: HOME SELF-CARE Condition: Fair Instructions (If sedation given, give patient instructions): Weakness (ED) Is patient prescribed a controlled substance at d/c from ED?: No Referrals: Lopez Mansfield DO [Primary Care Provider] - 1-2 days Abel Murillo DO [Doctor of Osteopathic Medicine] - 1-2 days Time of Disposition: 20:05
[2022-01-20 17:10] LABS: ALT 22 U/L (4-49); AST 33 U/L (17-59); African American GFR (CKD) >90 (>60 ml/min/1.73 sqM); Albumin 3.6 g/dL (3.5-5.0); Alkaline Phosphatase 88 U/L (38-126); Anion Gap 6 mmol/L; Blood Urea Nitrogen 16 mg/dL (9-20); Calcium 8.5 mg/dL (8.4-10.2); Carbon Dioxide 28 mmol/L (22-30); Chloride 103 mmol/L (98-107); Glucose 176 mg/dL (74-99); Magnesium 2.2 mg/dL (1.6-2.3); Non-African American GFR(CKD) >90 (>60 ml/min/1.73 sqM); Potassium 3.6 mmol/L (3.5-5.1); Sodium 137 mmol/L (137-145); Total Bilirubin 0.3 mg/dL (0.2-1.3); Total Protein 6.5 g/dL (6.3-8.2)
[2022-01-20] MEDS ORDERED: LORazepam 2 MG/ML INJ IV STA ×2 (17:48→18:09)
--- NOTE | 2022-01-20 19:25 | CT ---
EXAMINATION TYPE: CT brain cspine wo con DATE OF EXAM: 01/20/2022 COMPARISON: None HISTORY: weakness CT DLP: 1651.3 mGycm Automated exposure control for dose reduction was used. Images obtained of the brain without contrast. Ventricles have normal size. There is no mass effect o r midline shift. No sign of intracranial hemorrhage. Calvarium is intact. There is normal aeration of the mastoid sinuses. There is some widening of the subarachnoid space in the anterior left middle cr anial fossa consistent with arachnoid cyst that measures 1.5 cm in thickness. IMPRESSION: Arachnoid cyst anterior left middle cranial fossa. No acute intracranial abnormality.
--- NOTE | 2022-01-20 19:44 | CT ---
EXAMINATION TYPE: CT abdomen pelvis w con DATE OF EXAM: 01/20/2022 COMPARISON: 01/16/2022 HISTORY: abdominal distention/pain CT DLP: 3668.4 mGycm Automated exposure control for dose reduction was used. CONTRAST: Performed with IV Contrast, patient injected with 100 mL of Isovue 300. Images obtained from the diaphragm to the floor the pelvis with IV contrast. There are some patchy interstitial infiltrate or atelectasis at the lung bases. Heart is borderline e nlarged. No pericardial effusion. No pleural effusion. Liver is intact. The gallbladder appears kierra l. The boundaries are not dilated. There are calcified splenic granulomata. There is no pancreatic ma ss. The stomach appears intact. There is no adrenal mass. Kidneys have normal size. There is no hydronephrosis. Ureters are not dilat ed. There is London catheter in the urinary bladder. Bladder is almost empty. There is no inguinal her josiane. No pelvic mass. No free fluid in the pelvis. There are numerous large bowel diverticula. No dive rticulitis. There is no mesenteric edema. No ascites or free air. No bowel obstruction. Appendix is posterior and appears normal. The lumbar vertebrae have normal alignment. No compression fracture. Posterior elements are intact. F acet joints are intact. Hip joints are intact. IMPRESSION: Colonic diverticulosis without diverticulitis. Normal appendix. Enlarged prostate that measures 6.5 c m with calcification. No acute abnormality within the abdomen pelvis. There is some mild subsegmental atelectasis at the lung bases similar to the old exam
--- NOTE | 2022-01-20 19:47 | CT ---
EXAMINATION TYPE: CT thor lumbar spine w con DATE OF EXAM: 01/20/2022 COMPARISON: None HISTORY: bilateral weakness, h/o compression CT DLP: 3668.4 mGycm Automated exposure control for dose reduction was used. CONTRAST: Performed with IV Contrast, patient injected with 100 mL of Isovue 300. Images obtained from T1 to S1 vertebra with the IV contrast. The thoracic and lumbar vertebrae have overall fairly normal alignment. There is anterior fusion surg ana in the cervical spine from C4 to C7. Thoracic and lumbar vertebra show no compression fracture. T here is mild spurring of the endplates in the lower thoracic spine. The posterior elements are intact . There is no thoracic paraspinal mass. No evidence of focal bone destruction. The sacroiliac joints appear intact. There is some ligament thickening and L4-5 moderate bony spinal stenosis. There is als o a mild relative spinal stenosis at L2-3 due to ligament thickening and facet arthropathy. IMPRESSION: Minor degenerative spurring in the thoracic and lumbar spine. No compression fracture. There is some spinal stenosis as above at L2-3 and L4-5.
[2022-01-20 20:50] VITALS: BP 143/72; PULSE 62; RESP 16
== END 2022-01-20 20:49 | disposition home or self-care (01) ==
LOC: EC 12:05
DX: R53.1 Weakness (principal); D72.829 Elevated white blood cell count, unspecified; E86.0 Dehydration; E11.9 Type 2 diabetes mellitus without complications; E78.5 Hyperlipidemia, unspecified; I10 Essential (primary) hypertension; Z79.899 Other long term (current) drug therapy; Z79.84 Long term (current) use of oral hypoglycemic drugs
CPT/HCPCS: 36415; 93005; 80053; 83735; 85025; 85610; 85730; 81001; 71045; 72129; 72125; 72132; 70450; 74177; 99291; 96374; J2060; Q9967

== ENCOUNTER 2022-01-23 01:19 | Emergency (ER) | payer MEDICARE ==
[2022-01-23 01:36] VITALS: BP 168/94; PULSE 70; RESP 18; TEMP 97.5
--- NOTE | 2022-01-23 02:48 | ED ---
Male Urogenital HPI - General Chief complaint: Urogenital Stated complaint: Urogenital Time Seen by Provider: 01/23/22 02:09 Source: patient Mode of arrival: wheelchair Limitations: no limitations - History of Present Illness Initial comments: This is a pleasant 66-year-old male with a history of diabetes mellitus, hyperlipidemia, hypertension, musculoskeletal disorder, and BPH. Patient presents to the emergency department today complaining of urinary retention. Apparently the patient had cystoscopy done last week and had subsequent urinary retention. Patient indwelling London catheter until 3 PM yesterday. Had this taken out at his urologists office and then subsequently has been unable to urinate. Patient was instructed to come back to the ER for London catheter. Patient denying any fever or chills. No other symptomology. No headache, no fever or chills, no changes in vision or hearing, no sore throat or difficulty with speech, no neck pain, no chest pain or shortness of breath, no abdominal pain, no nausea or vomiting, no changes in bowel movements, no numbness or tingling, no extremity pain, no skin rashes or lesions. - Related Data Home Medications Medication Instructions Recorded Confirmed Tamsulosin [Flomax] 0.4 mg PO DAILY 12/27/19 01/20/22 glipiZIDE [Glucotrol] 10 mg PO BID 12/27/19 01/20/22 Aspirin EC [Ecotrin] 325 mg PO DAILY PRN 01/16/22 01/20/22 Apixaban [Eliquis Starter Pack See Taper PO DIRECTED 01/20/22 01/20/22 (for VTE)] lisinopriL [Zestril] 20 mg PO DAILY 01/20/22 01/20/22 Previous Rx's Medication Instructions Recorded Metoprolol Succinate (ER) [Toprol 25 mg PO DAILY #30 tab 01/17/22 XL] Allergies Allergy/AdvReac Type Severity Reaction Status Date / Time No Known Allergies Allergy Verified 01/20/22 16:38 Review of Systems ROS Statement: Those systems with pertinent positive or pertinent negative responses have been documented in the HPI. ROS Other: All systems not noted in ROS Statement are negative. Past Medical History Past Medical History: Diabetes Mellitus, Hyperlipidemia, Hypertension, Musculoskeletal Disorder, Osteoarthritis (OA), Prostate Disorder Additional Past Medical History / Comment(s): hx. 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 Past Anesthesia/Blood Transfusion Reactions: No Reported Reaction Past Psychological History: Anxiety Smoking Status: Never smoker Past Alcohol Use History: None Reported Past Drug Use History: None Reported - Past Family History Mother Family Medical History: No Reported History General Exam - General Exam Comments Initial Comments: Patient does not appear to be in significant distress. Does not appear to be ill or toxic. Vital signs reviewed Limitations: no limitations General appearance: alert, in no apparent distress Head exam: Present: atraumatic, normocephalic, normal inspection Eye exam: Present: normal appearance, PERRL, EOMI. Absent: scleral icterus, conjunctival injection, periorbital swelling ENT exam: Present: normal exam, mucous membranes moist Neck exam: Present: normal inspection, full ROM. Absent: tenderness, meningismus, lymphadenopathy Respiratory exam: Present: normal lung sounds bilaterally. Absent: respiratory distress, wheezes, rales, rhonchi, stridor Cardiovascular Exam: Present: regular rate, normal rhythm, normal heart sounds. Absent: systolic murmur, diastolic murmur, rubs, gallop, clicks GI/Abdominal exam: Present: soft, tenderness (Mild tenderness in the suprapubic area with some distention.), normal bowel sounds. Absent: distended, guarding, rebound, rigid Extremities exam: Present: normal inspection, full ROM, normal capillary refill. Absent: tenderness, pedal edema, joint swelling, calf tenderness Back exam: Present: normal inspection Neurological exam: Present: alert, oriented X3, CN II-XII intact Psychiatric exam: Present: normal affect, normal mood Skin exam: Present: warm, dry, intact, normal color. Absent: rash Course Vital Signs 01/23/22 01:30 Temperature 97.5 F L Pulse Rate 70 Respiratory 18 Rate Blood Pressure 168/94 O2 Sat by Pulse 98 Oximetry Medical Decision Making - Medical Decision Making Fully catheter be replaced. Patient tolerated well. Patient will follow-up tomorrow with his urologist, Dr. Post. Patient found to be mildly hypertensive. The patient actually has a cardiology appointment in the morning. Patient was told to return to the ER for any signs or symptoms worsen. Told to return immediately if any other problems arise. All questions answered. Treatment plan discussed. Patient in agreement Every effort has been made to ensure accuracy of this dictation. However, due to the limitations of electronic medical records and dictation devices, errors in charting still occur. Track Man Dr. Allen Disposition Clinical Impression: Acute urinary retention Disposition: HOME SELF-CARE Condition: Good Instructions (If sedation given, give patient instructions): Urinary Retention in Men (ED), London Catheter Placement and Care (ED) Additional Instructions: Follow-up with your regular physician as directed. Return to the ER immediately if any symptoms worsen, new symptoms arise, or any other problems develop. Is patient prescribed a controlled substance at d/c from ED?: No Referrals: Trevor Post MD [STAFF PHYSICIAN] - 1-2 days Time of Disposition: 02:47
== END 2022-01-23 03:27 | disposition home or self-care (01) ==
LOC: EC 01:19
DX: R33.9 Retention of urine, unspecified (principal); E11.9 Type 2 diabetes mellitus without complications; E78.5 Hyperlipidemia, unspecified; I10 Essential (primary) hypertension
CPT/HCPCS: 99283

== ENCOUNTER → 2023-06-04 | Outpatient (CLI) | payer MEDICARE | END | disposition home or self-care (01) | LOC: LABWHC1 14:33 | PROVIDERS: ATTEND Psychiatry & Neurology Neurology | DX: G70.00 Myasthenia gravis without (acute) exacerbation (principal) | CPT/HCPCS: 36415 ==